=== PATIENT | female | born 1960 | race Caucasian/White ===

== ENCOUNTER 2018-09-15 18:52 | Emergency (ER) | payer OTHER, MEDICARE ==
[~2018-09-15] VITALS: Ht 165.1 cm; Wt 95.2 kg
[~2018-09-15 18:52] MED LIST: ACET325UDC PO; ATOR10; BUME1; Bactrim 400-801 EACH PO; CALCA500CH PO; CENTRUM SILVER1 EAC2 PO; CIPR500 PO; CYAN1000 PO; CYAN1000I; ESCI10 PO; FENT25TP TOP; FENT75TP TOP; FURO40 PO; GABA250SO PO; HYDMOR4 PO; INSLI100I; INSULANI; LEVSOD100; LEVSOD200; LIDO5TP TOP; MULTCH; OMEP20ER; ONDA4ODT MM; OXYACE5T PO; Omeprazole20 M1; PHENA100 PO; PHENY100ER; PIOG15; POTA8; PROM25 PO; RANI150; ROSI4; RXHYDMOR2 PO; RXOXYACE PO; RXPHEN200 PO; SIME80CH PO; Senna Laxative8.6 MG PO; VALS80; VALS80 PO; VALSARTAN/HCTZ; WARF10; ZINC220 PO
[2018-09-15] MEDS ORDERED: LOSA25 (19:22)
[2018-09-15] MEDS ORDERED: LEVSOD50 PO (19:24)
[2018-09-15] MEDS ORDERED: METH10 PO (19:25)
[2018-09-15] MEDS ORDERED: GLIM2 PO (19:25)
[2018-09-15] MEDS ORDERED: IBUP400 PO (20:34)
== END 2018-09-15 20:43 | disposition home or self-care (01) ==
LOC: ER 18:52
DX: R10.11 Right upper quadrant pain (principal); M25.512 Pain in left shoulder; Z91.013 Allergy to seafood; Z88.0 Allergy status to penicillin; Z88.1 Allergy status to other antibiotic agents; Z91.048 Other nonmedicinal substance allergy status; Z79.899 Other long term (current) drug therapy; E11.9 Type 2 diabetes mellitus without complications; G40.909 Epilepsy, unspecified, not intractable, without status epilepticus; Z87.891 Personal history of nicotine dependence; V43.52XA Car driver injured in collision with other type car in traffic accident, initial encounter
CPT/HCPCS: 76705; 99284-25

== ENCOUNTER 2018-12-08 23:35 | Emergency (ER) | payer MEDICARE, OTHER ==
[~2018-12-08] VITALS: Ht 167.6 cm; Wt 97.5 kg
[~2018-12-08 23:35] MED LIST changes: +GLIM2 PO; +IBUP400 PO; +LEVSOD50 PO; +LOSA25; +METH10 PO
[2018-12-08] MEDS ORDERED: VALSARTAN-HCTZ1 EAC1 PO (23:50)
[2018-12-09] MEDS ORDERED: LORTAB 10 MG-3473 ML PO (00:41)
== END 2018-12-09 00:52 | disposition home or self-care (01) ==
LOC: ER 23:35
DX: S62.336A Displaced fracture of neck of fifth metacarpal bone, right hand, initial encounter for closed fracture (principal); S62.334A Displaced fracture of neck of fourth metacarpal bone, right hand, initial encounter for closed fracture; W01.198A Fall on same level from slipping, tripping and stumbling with subsequent striking against other object, initial encounter; E11.9 Type 2 diabetes mellitus without complications; G40.909 Epilepsy, unspecified, not intractable, without status epilepticus; Z87.891 Personal history of nicotine dependence; Z88.8 Allergy status to other drugs, medicaments and biological substances; Z91.013 Allergy to seafood; Z88.0 Allergy status to penicillin; Z88.1 Allergy status to other antibiotic agents; Z79.899 Other long term (current) drug therapy
CPT/HCPCS: 29125; 73130; 96372; 99283-25; J1885

== ENCOUNTER 2020-01-27 12:31 | Inpatient (IN) | payer MEDICARE, OTHER ==
[~2020-01-27] VITALS: Ht 165.1 cm; Wt 95.2 kg
[~2020-01-27 12:31] MED LIST changes: -AMLO5 PO; -ATORVASTATIN CA80 M1 PO; -Amaryl1 MG PO; -Aspir 8181 MG PO; -CLOP75 PO; -ESCITALOPRAM OXA5 MG PO; -GABAPENTIN250 MG/5 M PO; -HYDROMORPHO1 MG/1 ML PO; -LEVEMIR FL100 UNIT/1 SC; -LEVSOD100 PO; -METOPROLOL SUCC25 MG PO; -NITR.4SL SL; -OLMESARTAN-HCT1 EAC1 PO; -ROSUVASTATIN CAL5 MG PO; -XARELTO20 MG PO
[2020-01-27] MEDS ORDERED: Amaryl1 MG PO (13:15)
[2020-01-27] MEDS ORDERED: OLMESARTAN-HCT1 EAC1 PO (13:16)
[2020-01-27] MEDS ORDERED: HYDROMORPHO1 MG/1 ML PO (13:19)
[2020-01-27] MEDS ORDERED: ESCITALOPRAM OXA5 MG PO (13:20)
[2020-01-27] MEDS ORDERED: GABAPENTIN250 MG/5 M PO ×2 (13:21→13:25)
[2020-01-27] MEDS ORDERED: LEVEMIR FL100 UNIT/1 SC (13:25)
[2020-01-27] MEDS ORDERED: ROSUVASTATIN CAL5 MG PO (13:27)
[2020-01-27] MEDS ORDERED: METOPROLOL SUCC25 MG PO (13:38)
[2020-01-27] MEDS ORDERED: AMLO5 PO (13:38)
[2020-01-27 13:40] LABS: Free Thyroxine 2.35 ng/dL (0.70-1.60); Magnesium, Blood 1.9 mg/dL (1.6-2.4); Troponin I 0.12 ng/mL (0.000-0.040)
[2020-01-27 13:43] LABS: Thyroid Stimulating Hormone 0.318 uIU/mL (0.360-4.800)
[2020-01-27] MEDS ORDERED: LEVSOD100 PO (13:46)
--- NOTE | 2020-01-27 17:03 | NUR ---
Echocardiogram completed.
--- NOTE | 2020-01-27 18:50 | NUR ---
RATE/RHYTHM THIS RN CALLED TO ASK FOR RATE AND RHYTHM BEFORE GIVING DIGOXIN AND PCU SHOWCASE TRIMMER REPORTS RATE IS 90 AND RHYTHM IS SINUS RHYTHM. THIS RN TALKED WITH DR. LUCERO AND HE ORDERED TO HOLD THE DIGOXIN AT THIS TIME. WILL CONTINUE TO MONITOR RATE AND RHYTHM. CALL LIGHT IN REACH.
--- NOTE | 2020-01-27 19:26 | NUR ---
AUTOMATIC DIE CUTTING MACHINE OPERATOR HERE TO SEE PT AT THIS TIME
--- NOTE | 2020-01-27 19:27 | NUR ---
SHIFT SUMMARY PT ADMITTED THIS EVENING FROM ED INTO ROOM 326. PT ALERT AND ORIENTED X4. PT ORIENTED TO ROOM AND CALL LIGHT. NO COMPLAINTS OF CHEST PAIN OR SHORTNESS OF BREATH. PT DOES REPORT DIZZINESS WITH STANDING AND SITTING UP. PT RECEIVED A 500ML BOLUS ON THIS FLOOR AND HAS IVF INFUSING AT 100ML/HR. PT WAS IN AFIB AND HEART RATE RUNNING 120-160'S. DR. LUCERO WAS NOTIFIED OF PT SUSTAINING 160 FOR HEART RATE THIS EVENING AND HE ORDERED DIGOXIN IV. THIS RN WAS GOING TO ADMINISTER DIGOXIN AND CALLED SUPERVISOR COMMUNICATIONS AND SIGNALS BEFORE TO ASK FOR RATE AND RHYTHM AND PT CONVERTED TO NSR AT 90. DR. LUCERO WAS NOTIFIED BY THIS RN AND DIGOXIN WAS HELD. DR. MAY IN TO SEE PT THIS EVENING AND AWARE OF PT CONVERTED INTO NSR. PT HAS NO COMPLAINTS AT THIS TIME. CALL LIGHT IN REACH AND REPORT GIVEN TO NOC RN.
--- NOTE | 2020-01-28 04:33 | NUR ---
SHIFT SUMMARY PT IS A/O X4. NEEDS STANDBY ASSIST TO COMMODE. TOLERATING PO INTAKE AND VOIDING. PAIN MANAGED WITH PO PAIN MEDS PER ORDERS. TELE HAS BEEN IN PLACE PER ORDERS; PT HAS BEEN IN SINUS RHYTHM THROUGH THE SHIFT. ASSISTED WITH ADL'S PRN.
[2020-01-28 05:19] LABS: BASOPHILS ABSOLUTE AUTO 0.02 K/mm3 (0.00-0.23); BASOPHILS PERCENT AUTO 0 % (0-2); EOSINOPHILS ABSOLUTE AUTO 0.05 K/mm3 (0.00-0.68); EOSINOPHILS PERCENT AUTO 1 % (0-6); Hematocrit 38.8 % (33.0-51.0); IMMATURE GRAN ABSOLUTE AUTO 0.01 K/mm3 (0.00-0.10); IMMATURE GRAN PERCENT AUTO 0 % (0-1); LYMPHOCYTES ABSOLUTE AUTO 2.22 K/mm3 (0.84-5.20); LYMPHOCYTES PERCENT AUTO 39 % (21-46); MONOCYTES ABSOLUTE AUTO 0.35 K/mm3 (0.16-1.47); MONOCYTES PERCENT AUTO 6 % (4-13); Mean Corpuscular HGB 26.4 pg (26.0-34.0); Mean Corpuscular HGB Conc 30.9 g/dL (31.5-36.5); Mean Platelet Volume 11.4 fL (9.1-12.4); NEUTROPHILS ABSOLUTE AUTO 3.07 K/mm3 (1.96-9.15); NEUTROPHILS PERCENT AUTO 54 % (41-73); Platelet Count 181 K/mm3 (150-400); RDW Standard Deviation 43.1 fL (35.1-46.3); Red Blood Cell Count 4.54 M/mm3 (3.80-5.20); White Blood Cell Count 5.72 K/mm3 (4.00-11.30)
[2020-01-28 05:25] LABS: Mean Corpuscular Volume 86 fL (80-100)
[2020-01-28 05:52] LABS: Alanine Aminotransfer (ALT/SGP 42 U/L (12-78); Albumin, Blood 2.9 g/dL (3.4-5.0); Alk Phos 93 U/L (50-136); Anion Gap 5 mmol/L (6-16); Aspartate Aminotrans (AST/SGOT 151 U/L (12-37); Bilirubin, Total 0.6 mg/dL (0.1-1.0); Blood Urea Nitrogen 21 mg/dL (8-24); Bun/Creatinine Ratio 26.3 (12.0-20.0); CO2, Blood 28 mmol/L (21-32); Calcium, Blood 8.6 mg/dL (8.5-10.1); Chloride, Blood 109 mmol/L (98-108); Globulin, Blood 2.9 g/dL (2.2-4.0); Glomerular Filtration Rate >60 (60-); Glucose, Blood 185 mg/dL (70-99); Potassium, Blood 4.2 mmol/L (3.5-5.5); Sodium, Blood 142 mmol/L (136-145); Total Protein, Blood 5.8 g/dL (6.4-8.2)
--- NOTE | 2020-01-28 06:57 | NUR ---
TROPONIN/CARDIAC NOTE AT 0555 RN NOTIFIED OF CRITICAL TROPONIN. HOSPITALIST AND ENGRAVER COPPERPLATE NOTIFIED. DISCUSSED WTIH PHYSICAL SECURITY MANAGER. PT IS ASYMPTOMATIC - REPORTS NO C/P OR SOB.
[2020-01-28 07:34] LABS: International Normalized Ratio 1.02; Prothrombin Time Results 10.9 Sec (9.7-11.5)
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
--- NOTE | 2020-01-28 07:42 | NUR ---
REPORT GIVEN TO SERVICE AGENT. PT IS BEING TRANSFERRED.
--- NOTE | 2020-01-28 07:50 | NUR ---
RECEIEVED PT INTP PCU 6 VIA WHEELCHAIR. PT IS A&OX3-REPORTS 05/19 ABDOMINAL PAIN THAT IS "CHRONIC." PT DENIES CP OR SOB. VS WDL. HR 60'S. MURMUR AUSCULTATED. LUNGS CLEAR. NOTED 2+ EDEMA TO BILATERAL LOWER EXTREMITIES. PT TO REMAIN NPO EXCEPT MEDS FOR POSSIBLE TENSION WORKER LATER TODAY. CALL LIGHT PLACED WITHIN PT. REACH.
--- NOTE | 2020-01-28 07:52 | NUR ---
PATIENT TRANSFERRED TO ROOM PCU 6 AT 0745. REPORT GIVEN TO PCU NURSE BY ROVING INSPECTOR NURSE AGATHA BRANTLEY.
--- NOTE | 2020-01-28 08:30 | NUR ---
HEPARIN 5000 UNIT BOLUS GIVEN, THEN INITIATED HEPARIN DRIP @ 13 UNITS/KG/HR=18.7 ML/HR. PTT @ 1500.
--- NOTE | 2020-01-28 11:18 | NUR ---
PT STATES THAT SHE IS ANXIOUS REGARDING ANGIOGRAM. BP 146/116-DENIES CP OR SOB.
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
--- NOTE | 2020-01-28 13:00 | NUR ---
HEPARIN DRIP AND IVF STOPPED BY BUSINESS PROJECT MANAGER RNJESUS. PT TO BUSINESS PROJECT MANAGER VIA BED.
--- NOTE | 2020-01-28 14:55 | NUR ---
RETURNED FROM MACHINE PLASTER MIXER.S/P ANGIOGRAM WITH PCI TO RIGHT/DIAGONAL VIA RIGHT RADIAL ARTER. TR BAND INTACT TO RIGHT WRIST. ARM BOARD IN PLACE AND PT IS AWARE THAT SHE IS TO KEEP HER ARM STRAIGHT. NO NOTED HEMATOMA-NO ACUTE BLEEDING WITH TR CUFF INFLATED WITH 10CC OF AIR. PT IS SLEEPY, BUT OPENS HER EYES TO VOICE AND ANSWERS QUESTIONS APPROPRIATELY. SHE WA MEDICATED WITH ONLY BENADRYL FOR THE PROCEDURE. RADIAL AND ULNAR PULSES STRONG-SPO TO RIGHT INDEX FINGER AND GOOD PLETH.
--- NOTE | 2020-01-28 15:00 | NUR ---
NS@200CC/HR X 500 CC INITIATED.
--- NOTE | 2020-01-28 16:46 | NUR ---
CBG 302-COVERED WITH 6 UNITS REGULAR INSULIN PER SLIDING SCALE-SEE EMAR.
--- NOTE | 2020-01-28 18:09 | NUR ---
PT SAT UP IN CHAIR TO EAT DINNER. TOLERATED WELL. HOWEVER, RIGHT FOREARM IV SITE LEAKING LOOP WAS DISLODGED FROM IV CATHETER. IV REMAINED PATENT. NEW DRESSING APPLIED TO RIGHT ARM. PT GOWN CHANGED AND ASSISTED BACK TO BED. RIGHT RADIAL SITE REMAINS CLEAR. BLEEDING FROM RIGHT RADIAL SITE, TR BAND REMAINS IN PLACE. PT REPORTS FEELING "TIRED."
--- NOTE | 2020-01-28 19:23 | NUR ---
PT APPEARS TO BE SLEEPING. RIGHT RADIAL TR BAND REMAINS IN PLACE. NO BLEEDING OR HEMATOMA. SPO2 CONTINUES WITH GOOD PLETH. REPORT GIVEN TO AGATHA SEAY.
--- NOTE | 2020-01-29 00:50 | NUR ---
EVENT NOTE REQUESTED BY PRIMARY RN DAWOOD TO ASSIST IN ASSESSMENT OF TR BAND AND REMOVAL AT THIS TIME. BAND IS FULLY DEFLATED, NO SIGNS OF BLEEDING OR HEMATOMA. NO SWELLING, NO REDNESS, NON-TENDER. PT DENIES PAIN OR TINGLING. TR BAND REMOVED AND SCANT AMOUNT OF DRIED BLOOD CLEANED FROM INSERTION SITE. TEGADERM APPLIED AND ARM BOARD PLACED TO PROTECT SITE. PT DENIES COMPLAINTS OR OTHER NEEDS AT THIS TIME, UPDATE GIVEN TO DAWOOD SNIDER FOR FURTHER MONITORING.
--- NOTE | 2020-01-29 08:10 | NUR ---
SHIFT SUMMARY PT A&O; TR BAND DEFLATED APPROPRIATELY; REMOVED BY MANAGEMENT DEVELOPMENT SPECIALIST; NO SIGNS OF SWELLING, HEMATOMA OR BLEEDING; PROVIDER CALLED TO CLARIFY, NO ORDERS FOR AM LAB DRAWS; C/O CHRONIC ABDOMEN PAIN; REPOSITIONED AND MEDICATED PER EMAR; ASSISTED W/ AMBULATION FOR BATHROOM PRIVIELEGES; PT UP IN CHAIR THIS AM; CALL LIGHT IN REACH; DENIES NEEDS AT THIS TIME; REPORT GIVEN TO DAY SHIFT RN.
--- NOTE | 2020-01-29 08:20 | NUR ---
ASSUMPTION OF CARE PT SITTING UP IN CHAIR. A&Ox4; CALM AND COOPERATIVE WITH CARE. PT REPORTING CHRONIC ABD PAIN; MEDICATED x1 WITH PO DILAUDID THIS AM. PT DENIES SOB, CHEST PAIN/PRESSURE, DIZZINESS/LIGHTHEADEDNESS AND NAUSEA. PT REPROTS NUMBNESS TO BLE, REPORTS BASELINE FOR HER. PT RIGHT RADIAL SITE C/D/I; NO BLEEDING; BRUISING OR HEMATOMA NOTED; PT DENIES NUMBNESS/TINGLING TO RUE; CAP REFILL WNL. SPO2 >94% ON RA. PT EDUCATED ON PLAVIX, XARELTO AND LIPITOR. WILL CONTINUE TO MONITOR.
--- NOTE | 2020-01-29 12:54 | NUR ---
CLARIFIED D/C OF INSULING ORDERS WITH DR LONDON AND NOTIFIED OF CBG OF 202; NO NEW ORDERS AT THIS TIME. TELEPHONE REPORT GIVEN TO RN ASSUMING CARE OF PATIENT. PLANS TO MOVE TO ROOM 306.
--- NOTE | 2020-01-29 14:37 | NUR ---
ARRIVAL TO UNIT AND ASSESSMENT: PATIENT ARRIVED TO UNIT. REPORT RECEIVED FROM LEXII VALIENTE. PATIENT DENIES CHEST PAIN, SOB OR NUMBNESS/TINGLING IN EXTREMITIES. HEART RATE IS REGULAR AND PATIENT HAS A MURMUR THAT SHE REPORTS IS A BASELINE FINDING. PATIENT REPORTS HER RIGHT HAND IS NO LONGER FEELING COLD. EXTREMITIES ARE WARM TO THE TOUCH. PATIENT HAS SENSATION, MOTION, AND NORMAL PULSES IN RIGHT HAND/WRIST. PATIENT REPORTS A 7/10 ABDOMINAL PAIN THAT SHE HAS CHRONICALLY. PROVIDED WITH A K-PAD UNTIL NEXT PRN IS DUE. PATIENT REPORTS THIS IS ADEQUATE. PATIENT HAS MULTIPLE QUESTIONS ABOUT RESTRICTIONS AND FOLLOW-UP CARE. DISCUSSED PLAN TO PROVIDE EDUCATION THROUGHOUT THE AFTERNOON AND WRITTEN MATERIAL.
--- NOTE | 2020-01-29 18:50 | NUR ---
END OF SHIFT SUMMARY: PATIENT DENIED ANY CHEST PAIN, NUMBNESS/TINGLING IN EXTREMITIES, SOB, DIZZINESS OR LIGHTHEADEDNESS. PATIENT UP TO THE BATHROOM WITH OUT DIFFICULTY. PATIENT CONTINUES TO FOLLOW PRECAUTIONS TO RIGHT WRIST AND FOREARM. RIGHT HAND CONTINUES TO HAVE C/M/S. RADIAL ACCESS SITE CONTINUES TO BE FREE OF HEMATOMA OR BLEEDING. DRESSING IS C/D/I. EDUCATION PROVIDED TO PATIENT IN REGARDS TO ANGIO PROCEDURE, STENT, HOME CARE AND NON-STEMI. PATIENT REPORTS THAT SHE NEEDS A WRITTEN PERMISSION NOTE FROM THE BENCH BORING MACHINE OPERATOR THAT ALLOWS HER TO UNDERGO WEEKLY TRIGGER POINT INJECTIONS AND IV LIDOCAINE IN [place]. PER THE PATIENT, DR. GERONIMO PROVIDED VERBAL PERMISSION, BUT NOT WRITTEN PERMISSION. ATTEMPTED TO CALL THE ANSWERING SERVICE WITHOUT SUCCESS. WILL PASS ON TO POST DOCTORAL RESEARCHER. PATIENT NOTIFIED.
--- NOTE | 2020-01-30 03:58 | NUR ---
APPLICATIONS ARCHITECT REPORT PT A/OX4. DENIES CHEST PAIN, SOB, NAUSEA. MEDICATED FOR ABD PAIN PER EMAR MULTIPLE TIMES TONIGHT. THIS IS A CHRONIC PAIN THAT PT HAS BEEN HAVING AFTER GASTRIC BYPASS SURGERY FROM AWHILE AGO. HEATING PAD ALSO IN PLACE. VSS. NO ACUTE CHANGES. CALL LIGHT WITHIN REACH.
[2020-01-30] MEDS ORDERED: Aspir 8181 MG PO (13:28)
[2020-01-30] MEDS ORDERED: ATORVASTATIN CA80 M1 PO (13:29)
[2020-01-30] MEDS ORDERED: NITR.4SL SL (13:30)
[2020-01-30] MEDS ORDERED: CLOP75 PO (13:30)
[2020-01-30] MEDS ORDERED: XARELTO20 MG PO (13:31)
--- NOTE | 2020-01-30 15:15 | NUR ---
DISCHARGE SUMMARY: LATE ENTRY: PATIENT PAIN CONTROLLED THROUGHOUT SHIFT WITH PRN PAIN MEDICATIONS AND K-PAD. PATIENT DENIED CHEST PAIN OR DISCOMFORT THROUGHOUT SHIFT. RIGHT ACCESS POINT CONTINUES TO HAVE MINIMAL DRIED BLOOD AT SIGHT WITH NO PAIN OR CHANGES TO C/M/S OF THE HAND. IT APPEARS THAT A BRUISE IS FORMING AT THE SITE. PATIENT IS AWARE OF SIGNS AND SYMPTOMS OF INFECTION AND RADIAL SITE CARE AT HOME. DISCHARGE RX FAXED TO [facility] AT [facility] PER PATIENT REQUEST. DISCHARGE EDUCATION AND INSTRUCTIONS PROVIDED TO THE PATIENT. ALL QUESTIONS AND CONCERNS ADDRESSED. PATIENT DISCHARGED IN WHEELCHAIR WITH OCCUPATIONAL PSYCHOLOGIST. PATIENT STABLE AT TIME OF DISCHARGE.
== END 2020-01-30 14:39 | disposition home or self-care (01) | DRG 247 ==
LOC: ER 12:31 → PCU 12:32 → MEDS 12:32 → PCU 12:33 → ER 14:11 → PCU 14:11 → MEDS 14:11 → PCU 01-28 08:00 → MEDS 01-29 13:34
PROVIDERS: Emergency Medicine; Pharmacist; ADMIT Family Medicine
PROC: 027034Z Dilation of Coronary Artery, One Artery with Drug-eluting Intraluminal Device, Percutaneous Approach (ICD-10-PCS; principal; 2020-01-28)
PROC: B2111ZZ Fluoroscopy of Multiple Coronary Arteries using Low Osmolar Contrast (ICD-10-PCS; 2020-01-28)
PROC: 4A023N7 Measurement of Cardiac Sampling and Pressure, Left Heart, Percutaneous Approach (ICD-10-PCS; 2020-01-28)
DX: I21.4 Non-ST elevation (NSTEMI) myocardial infarction (principal); I47.2 Ventricular tachycardia; I25.10 Atherosclerotic heart disease of native coronary artery without angina pectoris; I48.91 Unspecified atrial fibrillation; I08.0 Rheumatic disorders of both mitral and aortic valves; E11.65 Type 2 diabetes mellitus with hyperglycemia; E66.01 Morbid (severe) obesity due to excess calories; G89.29 Other chronic pain; G40.909 Epilepsy, unspecified, not intractable, without status epilepticus; J45.909 Unspecified asthma, uncomplicated; I10 Essential (primary) hypertension; E78.5 Hyperlipidemia, unspecified; E87.6 Hypokalemia; E05.80 Other thyrotoxicosis without thyrotoxic crisis or storm; Z68.34 Body mass index [BMI] 34.0-34.9, adult; Z87.891 Personal history of nicotine dependence; Z98.84 Bariatric surgery status; Z88.8 Allergy status to other drugs, medicaments and biological substances; Z88.1 Allergy status to other antibiotic agents; Z88.0 Allergy status to penicillin; Z79.4 Long term (current) use of insulin; Z79.891 Long term (current) use of opiate analgesic; Z79.899 Other long term (current) drug therapy
CPT/HCPCS: 36415; 71045; 76937; 80053; 82947; 83735; 84439; 84443; 84484; 85025; 85347; 85610; 85730; 93005; 93010; 93306; 93454; 96361; 96374; 99285-25; A9270-GY; C1725; C1769; C1874; C1887; C1894; C9600; J1200; J1644; J1720; J1815; J2250; J3010; J7030; J7040; Q9967

== ENCOUNTER → 2020-01-27 | Outpatient (CLI) | payer MEDICARE, OTHER ==
[~2020-01-27] MED LIST changes: +AMLO5 PO; +ATORVASTATIN CA80 M1 PO; +Amaryl1 MG PO; +Aspir 8181 MG PO; -CENTRUM SILVER1 EAC2 PO; +CLOP75 PO; +ESCITALOPRAM OXA5 MG PO; +GABAPENTIN250 MG/5 M PO; -GLIM2 PO; +HYDROMORPHO1 MG/1 ML PO; +LEVEMIR FL100 UNIT/1 SC; +LEVSOD100 PO; -LEVSOD50 PO; +LORTAB 10 MG-3473 ML PO; -LOSA25; +METOPROLOL SUCC25 MG PO; +NITR.4SL SL; +OLMESARTAN-HCT1 EAC1 PO; +ROSUVASTATIN CAL5 MG PO; +XARELTO20 MG PO
[2020-01-27 12:17] LABS: BASOPHILS ABSOLUTE AUTO 0.04 K/mm3 (0.00-0.23); BASOPHILS PERCENT AUTO 0 % (0-2); EOSINOPHILS ABSOLUTE AUTO 0.07 K/mm3 (0.00-0.68); EOSINOPHILS PERCENT AUTO 1 % (0-6); Hematocrit 47.8 % (33.0-51.0); Hemoglobin 15.3 g/dL (11.5-16.0); IMMATURE GRAN ABSOLUTE AUTO 0.03 K/mm3 (0.00-0.10); IMMATURE GRAN PERCENT AUTO 0 % (0-1); LYMPHOCYTES PERCENT AUTO 27 % (21-46); MONOCYTES ABSOLUTE AUTO 0.49 K/mm3 (0.16-1.47); MONOCYTES PERCENT AUTO 5 % (4-13); Mean Corpuscular HGB 26.6 pg (26.0-34.0); Mean Corpuscular Volume 83 fL (80-100); Mean Platelet Volume 12.4 fL (9.1-12.4); NEUTROPHILS ABSOLUTE AUTO 6.43 K/mm3 (1.96-9.15); NEUTROPHILS PERCENT AUTO 67 % (41-73); Platelet Count 281 K/mm3 (150-400); RDW Standard Deviation 41.8 fL (35.1-46.3); Red Blood Cell Count 5.76 M/mm3 (3.80-5.20); White Blood Cell Count 9.66 K/mm3 (4.00-11.30)
[2020-01-27 12:29] LABS: Bun/Creatinine Ratio 22.9 (12.0-20.0); Calcium, Blood 9.1 mg/dL (8.5-10.1); Creatinine, Blood 1.09 mg/dL (0.40-1.00); Potassium, Blood 3.4 mmol/L (3.5-5.5); Troponin I 0.09 ng/mL (0.000-0.040)
== END | disposition home or self-care (01) ==
LOC: LAB EV 12:10 → LAB SHORT 12:10
PROVIDERS: Physician Assistant Surgical
DX: I48.91 Unspecified atrial fibrillation (principal)
CPT/HCPCS: 80048; 84484; 85025

== ENCOUNTER 2020-02-24 12:54 | Emergency (ER) | payer MEDICARE, OTHER ==
[~2020-02-24] VITALS: Ht 167.6 cm; Wt 95.2 kg
[~2020-02-24 12:54] MED LIST changes: +AMLO5 PO; +ATORVASTATIN CA80 M1 PO; +Amaryl1 MG PO; +Aspir 8181 MG PO; +CLOP75 PO; +ESCITALOPRAM OXA5 MG PO; +GABAPENTIN250 MG/5 M PO; +HYDROMORPHO1 MG/1 ML PO; +LEVEMIR FL100 UNIT/1 SC; +LEVSOD100 PO; +METOPROLOL SUCC25 MG PO; +NITR.4SL SL; +OLMESARTAN-HCT1 EAC1 PO; +ROSUVASTATIN CAL5 MG PO; +XARELTO20 MG PO
[2020-02-24 13:48] LABS: BASOPHILS ABSOLUTE AUTO 0.01 K/mm3 (0.00-0.23); BASOPHILS PERCENT AUTO 0 % (0-2); EOSINOPHILS ABSOLUTE AUTO 0.02 K/mm3 (0.00-0.68); EOSINOPHILS PERCENT AUTO 0 % (0-6); Hematocrit 41.3 % (33.0-51.0); Hemoglobin 12.6 g/dL (11.5-16.0); IMMATURE GRAN ABSOLUTE AUTO 0.01 K/mm3 (0.00-0.10); IMMATURE GRAN PERCENT AUTO 0 % (0-1); LYMPHOCYTES ABSOLUTE AUTO 1.48 K/mm3 (0.84-5.20); LYMPHOCYTES PERCENT AUTO 27 % (21-46); MONOCYTES PERCENT AUTO 5 % (4-13); Mean Corpuscular HGB 26.9 pg (26.0-34.0); Mean Corpuscular HGB Conc 30.5 g/dL (31.5-36.5); Mean Corpuscular Volume 88 fL (80-100); Mean Platelet Volume 10.4 fL (9.1-12.4); NEUTROPHILS ABSOLUTE AUTO 3.73 K/mm3 (1.96-9.15); NEUTROPHILS PERCENT AUTO 67 % (41-73); Platelet Count 277 K/mm3 (150-400); RDW Coefficient Variation 14.3 % (11.7-14.2); RDW Standard Deviation 46.1 fL (35.1-46.3); Red Blood Cell Count 4.68 M/mm3 (3.80-5.20); White Blood Cell Count 5.55 K/mm3 (4.00-11.30)
[2020-02-24 14:05] LABS: Alanine Aminotransfer (ALT/SGP 32 U/L (12-78); Albumin, Blood 3.2 g/dL (3.4-5.0); Albumin/Globulin Ratio 0.9 (0.8-1.8); Alk Phos 84 U/L (50-136); Anion Gap 6 mmol/L (6-16); Aspartate Aminotrans (AST/SGOT 33 U/L (12-37); Bilirubin, Total 0.6 mg/dL (0.1-1.0); Blood Urea Nitrogen 19 mg/dL (8-24); Bun/Creatinine Ratio 29.2 (12.0-20.0); CO2, Blood 26 mmol/L (21-32); Calcium, Blood 8.7 mg/dL (8.5-10.1); Chloride, Blood 108 mmol/L (98-108); Creatinine, Blood 0.65 mg/dL (0.40-1.00); Globulin, Blood 3.6 g/dL (2.2-4.0); Glomerular Filtration Rate >60 (60-); Glucose, Blood 211 mg/dL (70-99); Potassium, Blood 3.8 mmol/L (3.5-5.5); Sodium, Blood 140 mmol/L (136-145); Total Protein, Blood 6.8 g/dL (6.4-8.2)
== END 2020-02-24 15:54 | disposition home or self-care (01) ==
LOC: ER 12:54
PROVIDERS: Emergency Medicine
DX: R42 Dizziness and giddiness (principal); I10 Essential (primary) hypertension; E11.9 Type 2 diabetes mellitus without complications; G40.909 Epilepsy, unspecified, not intractable, without status epilepticus; E03.9 Hypothyroidism, unspecified; I25.10 Atherosclerotic heart disease of native coronary artery without angina pectoris; Z91.09 Other allergy status, other than to drugs and biological substances; Z88.0 Allergy status to penicillin; Z88.8 Allergy status to other drugs, medicaments and biological substances; Z88.1 Allergy status to other antibiotic agents; Z91.013 Allergy to seafood; Z79.4 Long term (current) use of insulin; Z79.899 Other long term (current) drug therapy; Z79.02 Long term (current) use of antithrombotics/antiplatelets
CPT/HCPCS: 36415; 80053; 85025; 93005; 93010; 96360; 99284-25; J7030

== ENCOUNTER 2021-02-21 15:44 | Inpatient (IN) | payer MEDICARE, OTHER ==
[~2021-02-21] VITALS: Ht 167.6 cm; Wt 95.2 kg
[2021-02-21 16:46] LABS: BASOPHILS ABSOLUTE AUTO 0.02 K/mm3 (0.00-0.23); BASOPHILS PERCENT AUTO 0 % (0-2); EOSINOPHILS ABSOLUTE AUTO 0.07 K/mm3 (0.00-0.68); EOSINOPHILS PERCENT AUTO 1 % (0-6); Hemoglobin 9.1 g/dL (11.5-16.0); IMMATURE GRAN ABSOLUTE AUTO 0.02 K/mm3 (0.00-0.10); IMMATURE GRAN PERCENT AUTO 0 % (0-1); LYMPHOCYTES ABSOLUTE AUTO 1.41 K/mm3 (0.84-5.20); LYMPHOCYTES PERCENT AUTO 25 % (21-46); MONOCYTES ABSOLUTE AUTO 0.35 K/mm3 (0.16-1.47); MONOCYTES PERCENT AUTO 6 % (4-13); Mean Corpuscular HGB Conc 28.4 g/dL (31.5-36.5); Mean Corpuscular Volume 78 fL (80-100); Mean Platelet Volume 10.4 fL (9.1-12.4); NEUTROPHILS ABSOLUTE AUTO 3.78 K/mm3 (1.96-9.15); NEUTROPHILS PERCENT AUTO 67 % (41-73); Platelet Count 259 K/mm3 (150-400); RDW Coefficient Variation 18.7 % (11.7-14.2); RDW Standard Deviation 52.4 fL (35.1-46.3); Red Blood Cell Count 4.13 M/mm3 (3.80-5.20); White Blood Cell Count 5.65 K/mm3 (4.00-11.30)
[2021-02-21 17:16] LABS: Alanine Aminotransfer (ALT/SGP 33 U/L (12-78); Albumin, Blood 2.9 g/dL (3.4-5.0); Albumin/Globulin Ratio 0.8 (0.8-1.8); Alk Phos 180 U/L (50-136); Anion Gap 4 mmol/L (6-16); Aspartate Aminotrans (AST/SGOT 47 U/L (12-37); Bilirubin, Total 0.4 mg/dL (0.1-1.0); Blood Urea Nitrogen 13 mg/dL (8-24); CO2, Blood 29 mmol/L (21-32); Calcium, Blood 7.9 mg/dL (8.5-10.1); Chloride, Blood 111 mmol/L (98-108); Creatinine, Blood 0.72 mg/dL (0.40-1.00); Globulin, Blood 3.6 g/dL (2.2-4.0); Glomerular Filtration Rate >60 (60-); Glucose, Blood 67 mg/dL (70-99); Potassium, Blood 3.7 mmol/L (3.5-5.5); Sodium, Blood 144 mmol/L (136-145); Total Protein, Blood 6.5 g/dL (6.4-8.2)
[2021-02-21] MEDS ORDERED: ESCI10 PO (19:31)
[2021-02-21] MEDS ORDERED: LEVEMIR FL100 UNIT/2 SC (19:38)
[2021-02-21] MEDS ORDERED: LEVSOD100 PO (19:39)
[2021-02-21] MEDS ORDERED: RANO500T PO (19:49)
[2021-02-21] MEDS ORDERED: TRULICITY1.5 MG/0.1 SC (19:51)
[2021-02-21] MEDS ORDERED: PREG100 PO (19:53)
[2021-02-21] MEDS ORDERED: SYNTHROID100 MC6 PO (20:42)
[2021-02-21] MEDS ORDERED: DILAUDID1 MG/1 M1 PO (20:43)
[2021-02-21] MEDS ORDERED: Bisoprolol Fumar5 MG PO (20:43)
[2021-02-21] MEDS ORDERED: PREGABALIN PO (20:44)
[2021-02-21] MEDS ORDERED: MOBIC15 MG PO (20:45)
[2021-02-21] MEDS ORDERED: RANOLAZINE ER500 M2 PO (20:46)
[2021-02-21] MEDS ORDERED: LIPITOR80 MG PO (20:47)
[2021-02-21] MEDS ORDERED: PLAVIX75 MG PO (20:47)
[2021-02-21] MEDS ORDERED: ESCI20 PO (20:47)
[2021-02-21 21:10] LABS: Hematocrit 29.7 % (33.0-51.0); Hemoglobin 8.4 g/dL (11.5-16.0)
[2021-02-21 21:41] LABS: International Normalized Ratio 1.27; Prothrombin Time Results 13.5 Sec (9.7-11.5)
--- NOTE | 2021-02-21 22:37 | NUR ---
60 YR OLD FEMALE ADMITTED TO FLOOR FROM THE ED WITH DX OF GI BLEED. ALERT ANDORIENTED. ORIENTED TO USE OF CALL LIGHT. CALL LIGHT IN REACH.
[2021-02-22 01:08] LABS: BASOPHILS ABSOLUTE AUTO 0.02 K/mm3 (0.00-0.23); BASOPHILS PERCENT AUTO 0 % (0-2); EOSINOPHILS ABSOLUTE AUTO 0.07 K/mm3 (0.00-0.68); EOSINOPHILS PERCENT AUTO 1 % (0-6); Hemoglobin 8.6 g/dL (11.5-16.0); IMMATURE GRAN ABSOLUTE AUTO 0.01 K/mm3 (0.00-0.10); IMMATURE GRAN PERCENT AUTO 0 % (0-1); LYMPHOCYTES ABSOLUTE AUTO 1.33 K/mm3 (0.84-5.20); LYMPHOCYTES PERCENT AUTO 26 % (21-46); MONOCYTES ABSOLUTE AUTO 0.34 K/mm3 (0.16-1.47); MONOCYTES PERCENT AUTO 7 % (4-13); Mean Corpuscular HGB 21.7 pg (26.0-34.0); Mean Corpuscular HGB Conc 27.7 g/dL (31.5-36.5); Mean Corpuscular Volume 78 fL (80-100); Mean Platelet Volume 10.7 fL (9.1-12.4); NEUTROPHILS ABSOLUTE AUTO 3.43 K/mm3 (1.96-9.15); NEUTROPHILS PERCENT AUTO 66 % (41-73); Platelet Count 238 K/mm3 (150-400); RDW Coefficient Variation 18.6 % (11.7-14.2); RDW Standard Deviation 52.6 fL (35.1-46.3); Red Blood Cell Count 3.96 M/mm3 (3.80-5.20)
--- NOTE | 2021-02-22 01:11 | NUR ---
CONSULT FOR DR DAVIES (GI) CALLED IN, SHIN MCKEON MD WOULD BE NOTIFIED AT 0800 AM
[2021-02-22 01:39] LABS: Anion Gap 2 mmol/L (6-16); Blood Urea Nitrogen 12 mg/dL (8-24); Bun/Creatinine Ratio 17.1 (12.0-20.0); CO2, Blood 29 mmol/L (21-32); Calcium, Blood 7.8 mg/dL (8.5-10.1); Chloride, Blood 111 mmol/L (98-108); Ferritin, Serum 5 ng/mL (8-252); Glomerular Filtration Rate >60 (60-); Glucose, Blood 76 mg/dL (70-99); Iron Serum 23 ug/dL (50-170); Percent Saturation 5.2 % (15.0-50.0); Potassium, Blood 3.7 mmol/L (3.5-5.5); Sodium, Blood 142 mmol/L (136-145); Total Iron Binding Capacity 445 ug/dL (250-450)
--- NOTE | 2021-02-22 04:06 | NUR ---
SHIFT SUMMARY ADMITTED WITH DX GI BLEED. PROTONIX DRIP CONTINUES AT 10 ML/HR, AND NS AT 75 ML/HR FOR HYDRATION. RECEIVING DILAUDID 1 MG IV ABOUT EVERY 2 HRS FOR CHRONIC ABD PAIN. UP TO THE BATHROOM WITH ASSIST SHE HAS AN UNSTEADY GAIT. INTERMITTENT SLEEPING NOTICED. CALL LIGHT IN REACH
[2021-02-22 08:18] LABS: Hematocrit 30.5 % (33.0-51.0); Hemoglobin 8.5 g/dL (11.5-16.0)
--- NOTE | 2021-02-22 11:42 | NUR ---
ADMIT:02/21/21 DISCHARGE: DX: gastro bleed CC: cpeabody JESS CALL: RESIDENCE: home CAREGIVER: magdy TREVIÑO (PARENT) DX:aortic valve steno sis, DM 2 , afib, depression, hs of myocardial infarction, htn, DME: dm supplies CCM: no record HOME HEALTH: no record SUMMARY: admit 02/21/21 GIB (gastrointestinal bleeding) A/P: The patient did have a tooth pulled February 01 and had several days of constant bleeding but that has stopped now I doubt the patient's stool would still be heme positive if it were from that only. Patient does have a history of gastric bypass and multiple abdominal surgeries, she is also on Xarelto and Plavix and admits to taking Naproxen and Meloxicam daily.
[2021-02-22 12:30] LABS: Influenza A, PCR NEGATIVE (NEGATIVE); Influenza B, PCR NEGATIVE (NEGATIVE); Resp Syncytial Virus, PCR NEGATIVE (NEGATIVE); SARS-Cov-2 (COVID-19) PCR, MMC NEGATIVE (NEGATIVE)
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
--- NOTE | 2021-02-22 14:27 | NUR ---
02/22/21 1427 Jorden Ly PATIENT DETERMINED TO BE ASA APPROPRIATE FOR PROPOFOL SEDATION PRIOR TO START OF PROCEDURE BY DR. DAVIES Bite Block Placed 3-LEAD EKG REVIEWED WITH PHYSICIAN PRIOR TO START OF PROCEDURE. Patient to ENDO 1 History, Chart, Medications and Allergies reviewed before start of procedure. MONITOR INTACT WITH CONTINUOUS PULSE OXIMETRY AND INTERMITTENT BP. O2 VIA N/C INTACT THROUGHOUT SEDATION/PROCEDURE.
[2021-02-22 15:35] LABS: Hematocrit 31.4 % (33.0-51.0); Hemoglobin 8.9 g/dL (11.5-16.0)
[2021-02-22 23:27] LABS: Hematocrit 29.7 % (33.0-51.0); Hemoglobin 8.4 g/dL (11.5-16.0)
--- NOTE | 2021-02-23 04:14 | NUR ---
SHIFT SUMMARY NO ACUTE CHANGES TO REPORT THIS SHIFT. PT HAS BEEN AWAKE MOST OF THE NIGHT WATCHING TV ON HER PHONE OR PLAYING [employer]. PT MEDICATED FOR PAIN PRN PER ORDERS FOR CHRONIC ABD PAIN. PT AMBULATES WELL WITH 1 PA ASSIST. APPETITE IS GOOD, ASSESSMENT UNCHANGED. PT TO DISCHARGE TODAY. BED IN LOWEST POSITION, CALL LIGHT WITHIN REACH.
[2021-02-23 05:32] LABS: BASOPHILS ABSOLUTE AUTO 0.02 K/mm3 (0.00-0.23); BASOPHILS PERCENT AUTO 1 % (0-2); EOSINOPHILS ABSOLUTE AUTO 0.06 K/mm3 (0.00-0.68); EOSINOPHILS PERCENT AUTO 1 % (0-6); Hematocrit 30.6 % (33.0-51.0); Hemoglobin 8.5 g/dL (11.5-16.0); IMMATURE GRAN ABSOLUTE AUTO 0.02 K/mm3 (0.00-0.10); IMMATURE GRAN PERCENT AUTO 1 % (0-1); LYMPHOCYTES ABSOLUTE AUTO 1.14 K/mm3 (0.84-5.20); LYMPHOCYTES PERCENT AUTO 26 % (21-46); MONOCYTES ABSOLUTE AUTO 0.35 K/mm3 (0.16-1.47); MONOCYTES PERCENT AUTO 8 % (4-13); Mean Corpuscular HGB 21.7 pg (26.0-34.0); Mean Corpuscular HGB Conc 27.8 g/dL (31.5-36.5); Mean Corpuscular Volume 78 fL (80-100); Mean Platelet Volume 10.8 fL (9.1-12.4); NEUTROPHILS ABSOLUTE AUTO 2.82 K/mm3 (1.96-9.15); NEUTROPHILS PERCENT AUTO 64 % (41-73); Platelet Count 231 K/mm3 (150-400); RDW Coefficient Variation 18.8 % (11.7-14.2); RDW Standard Deviation 53.3 fL (35.1-46.3); Red Blood Cell Count 3.92 M/mm3 (3.80-5.20); White Blood Cell Count 4.41 K/mm3 (4.00-11.30)
[2021-02-23 06:03] LABS: Anion Gap 6 mmol/L (6-16); Blood Urea Nitrogen 13 mg/dL (8-24); Bun/Creatinine Ratio 16.1 (12.0-20.0); CO2, Blood 26 mmol/L (21-32); Calcium, Blood 7.8 mg/dL (8.5-10.1); Chloride, Blood 108 mmol/L (98-108); Creatinine, Blood 0.81 mg/dL (0.40-1.00); Glomerular Filtration Rate >60 (60-); Glucose, Blood 154 mg/dL (70-99); Potassium, Blood 4.1 mmol/L (3.5-5.5); Sodium, Blood 140 mmol/L (136-145)
--- NOTE | 2021-02-23 14:04 | NUR ---
SUMMARY/DISCHARGE PT DISCHARGED TO HOME, PT VERBALIZED UNDERSTANDING OF DISCHARGE ORDERS, INCLUDING FOLLOW UP AND MEDICATIONS, PT TAKEN OUT SAFELY VIA WHEELCHAIR
--- NOTE | 2021-02-23 15:28 | NUR ---
02/23/21 Discharge home, nephew here to pick her up, reviewed shanita letter and discharge summary, needs follow up in 1 week with shanita. Did not identify any care needs at this time. cp
== END 2021-02-23 13:07 | disposition home or self-care (01) | DRG 920 ==
LOC: ER 15:44 → MEDS 15:45 → ENPENDDIS 02-23 12:25 → MEDS 02-23 13:07
PROVIDERS: Family Medicine; Internal Medicine Gastroenterology; Nurse Practitioner Acute Care; Physician Assistant; ADMIT Family Medicine
PROC: 0DB68ZX Excision of Stomach, Via Natural or Artificial Opening Endoscopic, Diagnostic (ICD-10-PCS; principal; 2021-02-22 14:00)
DX: K91.840 Postprocedural hemorrhage of a digestive system organ or structure following a digestive system procedure (principal); K92.1 Melena; D62 Acute posthemorrhagic anemia; D68.32 Hemorrhagic disorder due to extrinsic circulating anticoagulants; E86.0 Dehydration; G40.909 Epilepsy, unspecified, not intractable, without status epilepticus; E11.9 Type 2 diabetes mellitus without complications; G89.29 Other chronic pain; I10 Essential (primary) hypertension; E03.9 Hypothyroidism, unspecified; K46.9 Unspecified abdominal hernia without obstruction or gangrene; E66.01 Morbid (severe) obesity due to excess calories; I48.0 Paroxysmal atrial fibrillation; K43.2 Incisional hernia without obstruction or gangrene; Z98.84 Bariatric surgery status; Z98.1 Arthrodesis status; Z88.8 Allergy status to other drugs, medicaments and biological substances; Z88.1 Allergy status to other antibiotic agents; Z91.041 Radiographic dye allergy status; Z88.0 Allergy status to penicillin; Z91.013 Allergy to seafood; Z90.49 Acquired absence of other specified parts of digestive tract; Z90.89 Acquired absence of other organs; Z90.710 Acquired absence of both cervix and uterus; Z98.890 Other specified postprocedural states; Z90.721 Acquired absence of ovaries, unilateral; Z79.01 Long term (current) use of anticoagulants; Z79.02 Long term (current) use of antithrombotics/antiplatelets; Z79.899 Other long term (current) drug therapy; Z79.4 Long term (current) use of insulin; I25.2 Old myocardial infarction; Z95.5 Presence of coronary angioplasty implant and graft; Z68.33 Body mass index [BMI] 33.0-33.9, adult; Y83.8 Other surgical procedures as the cause of abnormal reaction of the patient, or of later complication, without mention of misadventure at the time of the procedure; T45.515A Adverse effect of anticoagulants, initial encounter; T45.525A Adverse effect of antithrombotic drugs, initial encounter; T39.395A Adverse effect of other nonsteroidal anti-inflammatory drugs [NSAID], initial encounter
CPT/HCPCS: 0241U; 36415; 71045; 74177; 80048; 80053; 82728; 82947; 83540; 83550; 84443; 85014; 85018; 85025; 85610; 85730; 86850; 86900; 86901; 88305; 88342; 93005; 93010; 96365; 96375; 96376; 99285-25; A9270; A9270-GY; C9113; G0378; J1170; J1815; J2704; J7030; J7120; Q9967

== ENCOUNTER 2021-05-13 11:17 | Emergency (ER) | payer MEDICARE, OTHER ==
[~2021-05-13] VITALS: Ht 167.6 cm; Wt 97.5 kg
[~2021-05-13 11:17] MED LIST changes: +ATOR80 PO; +Acetaminophen325 M1 PO; +Bisoprolol Fumar5 MG PO; +CITA20 PO; +DILAUDID1 MG/1 M1 PO; +ESCI20 PO; +HYDROMORPHO1 MG/1 M9 PO; +INSULANPEN SC; +LEVEMIR FL100 UNIT/2 SC; +LIPITOR80 MG PO; +LYRICA20 MG/1 ML PO; +MOBIC15 MG PO; +Mobic15 MG PO; +NARCAN4 M1; +NYSTOP15 GM; +PLAVIX75 MG PO; +PREG100 PO; +PREGABALIN PO; +RANO500T PO; +RANOLAZINE ER500 M2 PO; +SYNTHROID100 MC6 PO; +TRULICITY1.5 MG/0.1 SC
[2021-05-13] MEDS ORDERED: ESCI20 PO (11:29)
[2021-05-13] MEDS ORDERED: HYDROMORPHO1 MG/119 PO (11:30)
[2021-05-13] MEDS ORDERED: LEVEMIR FL100 UNIT/2 SC (11:31)
[2021-05-13] MEDS ORDERED: PREG25 PO (11:33)
[2021-05-13] MEDS ORDERED: RANO500T PO (11:33)
[2021-05-13] MEDS ORDERED: TRULICITY3 MG/0.5 M (11:35)
[2021-05-13 12:10] LABS: Calcium, Ionized (POC) 1.14 mmol/L (1.10-1.46); Chloride (POC) 102 mmol/L (98-108); Creatinine (POC) 0.6 mg/dL (0.6-1.0); Glucose (ISTAT POC) 191 mg/dL (70-99); Hemoglobin (POC) 9.9 g/dL (12.0-16.0); Potassium (POC) 3.8 mmol/L (3.5-5.5); Sodium (POC) 141 mmol/L (135-148); Total CO2 (POC) 25 mmol/L (21-32)
== END 2021-05-13 13:48 | disposition home or self-care (01) ==
LOC: ER 11:17
PROVIDERS: Emergency Medicine
DX: R04.0 Epistaxis (principal); E11.9 Type 2 diabetes mellitus without complications; I10 Essential (primary) hypertension; I48.91 Unspecified atrial fibrillation; Z79.4 Long term (current) use of insulin; Z79.02 Long term (current) use of antithrombotics/antiplatelets; Z79.899 Other long term (current) drug therapy; Z88.1 Allergy status to other antibiotic agents; Z88.0 Allergy status to penicillin; Z91.013 Allergy to seafood
CPT/HCPCS: 30905; 80047; 85014; 99283-25

== ENCOUNTER 2021-06-14 13:02 | Day surgery (SDC) | payer MEDICARE, OTHER ==
[~2021-06-14] VITALS: Ht 165.1 cm; Wt 99.3 kg
[~2021-06-14 13:02] MED LIST changes: +HYDROMORPHO1 MG/119 PO; +PREG25 PO; +TRULICITY3 MG/0.5 M
--- NOTE | 2021-06-14 13:58 | NUR ---
06/14/21 1358 Aaron Fernando CALL LIGHT WITHIN REACH
--- NOTE | 2021-06-14 14:52 | NUR ---
06/14/21 1452 Shayy Ackerman BUPIVACAINE 0.5% MIXED W/ LIDOCAINE 1% 1:1 PER ORDER FOR PRE INJECTION AT OPSITE BY DR. SUGGS. 20 MLS BUPIVACAINE 0.5% & LIDOCAINE 1% INJECTED. ADDITIONAL 10 MLS OF BUPIVACAINE 0.5% INJECTED AT OPSITE DURING PROCEDURE BY DR. SUGGS FOR PAIN CONTROL.
== END 2021-06-14 16:45 | disposition home or self-care (01) ==
LOC: ORSCSDS 13:02
PROVIDERS: Podiatrist
PROC: 0SNP0ZZ Release Right Toe Phalangeal Joint, Open Approach (ICD-10-PCS; principal; 2021-06-14 14:15)
PROC: 0QSN04Z Reposition Right Metatarsal with Internal Fixation Device, Open Approach (ICD-10-PCS; principal; 2021-06-14 14:15)
DX: M20.41 Other hammer toe(s) (acquired), right foot (principal); M77.41 Metatarsalgia, right foot; I10 Essential (primary) hypertension; E78.00 Pure hypercholesterolemia, unspecified; I25.10 Atherosclerotic heart disease of native coronary artery without angina pectoris; J45.909 Unspecified asthma, uncomplicated; E11.42 Type 2 diabetes mellitus with diabetic polyneuropathy; Z79.01 Long term (current) use of anticoagulants; Z79.4 Long term (current) use of insulin; Z79.899 Other long term (current) drug therapy; E66.9 Obesity, unspecified; Z68.36 Body mass index [BMI] 36.0-36.9, adult
CPT/HCPCS: 82947; C1713; J2250; J2704; J3010; J3370; J7050; J7120

== ENCOUNTER → 2021-07-30 | Outpatient (CLI) | payer MEDICARE, OTHER ==
[2021-07-31 10:48] LABS: Stool Occult Bld Immuno 1 Negative (NEGATIVE)
== END | disposition home or self-care (01) ==
LOC: LAB 10:30 → LAB SHORT 10:30
PROVIDERS: Physician Assistant
DX: D50.9 Iron deficiency anemia, unspecified (principal)
CPT/HCPCS: 82274

== ENCOUNTER 2021-09-24 14:58 | Emergency (ER) | payer MEDICARE, OTHER ==
[~2021-09-24] VITALS: Ht 167.6 cm; Wt 101.6 kg
[2021-09-24 15:52] LABS: BASOPHILS ABSOLUTE AUTO 0.03 K/mm3 (0.00-0.23); BASOPHILS PERCENT AUTO 1 % (0-2); EOSINOPHILS ABSOLUTE AUTO 0.08 K/mm3 (0.00-0.68); EOSINOPHILS PERCENT AUTO 1 % (0-6); Hematocrit 49.4 % (33.0-51.0); Hemoglobin 15.4 g/dL (11.5-16.0); IMMATURE GRAN ABSOLUTE AUTO 0.01 K/mm3 (0.00-0.10); IMMATURE GRAN PERCENT AUTO 0 % (0-1); LYMPHOCYTES ABSOLUTE AUTO 1.28 K/mm3 (0.84-5.20); LYMPHOCYTES PERCENT AUTO 23 % (21-46); MONOCYTES PERCENT AUTO 5 % (4-13); Mean Corpuscular HGB 27.9 pg (26.0-34.0); Mean Corpuscular HGB Conc 31.2 g/dL (31.5-36.5); Mean Corpuscular Volume 90 fL (80-100); Mean Platelet Volume 9.7 fL (9.1-12.4); NEUTROPHILS ABSOLUTE AUTO 3.87 K/mm3 (1.96-9.15); NEUTROPHILS PERCENT AUTO 70 % (41-73); Platelet Count 304 K/mm3 (150-400); RDW Coefficient Variation 15.9 % (11.7-14.2); RDW Standard Deviation 51.8 fL (35.1-46.3); Red Blood Cell Count 5.52 M/mm3 (3.80-5.20); White Blood Cell Count 5.57 K/mm3 (4.00-11.30)
[2021-09-24 16:11] LABS: Alanine Aminotransfer (ALT/SGP 36 U/L (12-78); Albumin, Blood 2.9 g/dL (3.4-5.0); Albumin/Globulin Ratio 0.7 (0.8-1.8); Alk Phos 199 U/L (50-136); Anion Gap 5 mmol/L (6-16); Aspartate Aminotrans (AST/SGOT 42 U/L (12-37); Bilirubin, Total 0.8 mg/dL (0.1-1.0); Blood Urea Nitrogen 18 mg/dL (8-24); Bun/Creatinine Ratio 20.1 (12.0-20.0); CO2, Blood 26 mmol/L (21-32); Chloride, Blood 109 mmol/L (98-108); Globulin, Blood 4.3 g/dL (2.2-4.0); Glomerular Filtration Rate >60 (60-); Glucose, Blood 99 mg/dL (70-99); Potassium, Blood 4.4 mmol/L (3.5-5.5); Sodium, Blood 140 mmol/L (136-145); Total Protein, Blood 7.2 g/dL (6.4-8.2); Troponin I <0.015 ng/mL (0.000-0.040)
[2021-09-24] MEDS ORDERED: METO25 PO (19:46)
[2021-09-24 20:53] LABS: Influenza A, PCR NEGATIVE (NEGATIVE); Influenza B, PCR NEGATIVE (NEGATIVE); Resp Syncytial Virus, PCR NEGATIVE (NEGATIVE); SARS-Cov-2 (COVID-19) PCR, MMC NEGATIVE (NEGATIVE)
== END 2021-09-24 20:05 | disposition home or self-care (01) ==
LOC: ER 14:58
PROVIDERS: Physician Assistant; Student in an Organized Health Care Education/Training Program
DX: I48.91 Unspecified atrial fibrillation (principal); I10 Essential (primary) hypertension; E11.9 Type 2 diabetes mellitus without complications; G40.909 Epilepsy, unspecified, not intractable, without status epilepticus; E03.9 Hypothyroidism, unspecified; I25.2 Old myocardial infarction; Z88.1 Allergy status to other antibiotic agents; Z88.8 Allergy status to other drugs, medicaments and biological substances; Z91.048 Other nonmedicinal substance allergy status; Z88.0 Allergy status to penicillin; Z91.013 Allergy to seafood; Z79.899 Other long term (current) drug therapy; Z79.4 Long term (current) use of insulin
CPT/HCPCS: 0241U; 36415; 71046; 80053; 83735; 83880; 84484; 85025; 93005; 93010; 96374; 96375; 99284-25; A9270; J1885; J7030

== ENCOUNTER → 2021-09-26 | Outpatient (CLI) | payer MEDICARE, OTHER ==
[~2021-09-26] MED LIST changes: +METO25 PO
[2021-09-26 18:04] LABS: Appearance, Urine Hazy (Clear); Bilirubin, Urine Neg (Neg); Blood, Urine 1+ (Neg); Color, Urine Yellow (P-Yellow); Glucose Qualitative, Urine 4+ (Neg); Ketones, Urine Neg (Neg); Leukocyte Esterase, Urine 1+ (Neg); Nitrite, Urine Neg (Neg); Protein, Urine 2+ (Neg); Urobilinogen, Urine 2+ (Normal)
[2021-09-26 18:26] LABS: Bacteria Many /hpf; Calcium Oxalate Crystals Mod /hpf; Red Blood Cells, Urine 0-2 /hpf (0-2)
[2021-09-26 18:27] LABS: Amorphous Light (0-Heavy); Squamous Epithelial Cells Few /hpf (Few)
[2021-09-26 18:36] LABS: Source, Urine Clean Catch
== END | disposition home or self-care (01) ==
LOC: LAB SHORT 15:34
PROVIDERS: Nurse Practitioner Family
DX: R42 Dizziness and giddiness (principal)
CPT/HCPCS: 81001; 87077; 87086; 87186

== ENCOUNTER 2021-09-27 10:22 | Inpatient (IN) | payer MEDICARE, OTHER ==
[~2021-09-27] VITALS: Ht 167.6 cm; Wt 99.8 kg
[2021-09-27 11:15] LABS: BASOPHILS ABSOLUTE AUTO 0.03 K/mm3 (0.00-0.23); BASOPHILS PERCENT AUTO 1 % (0-2); EOSINOPHILS ABSOLUTE AUTO 0.09 K/mm3 (0.00-0.68); EOSINOPHILS PERCENT AUTO 2 % (0-6); Hematocrit 44.1 % (33.0-51.0); Hemoglobin 13.6 g/dL (11.5-16.0); IMMATURE GRAN ABSOLUTE AUTO 0.03 K/mm3 (0.00-0.10); IMMATURE GRAN PERCENT AUTO 1 % (0-1); LYMPHOCYTES ABSOLUTE AUTO 1.01 K/mm3 (0.84-5.20); LYMPHOCYTES PERCENT AUTO 16 % (21-46); MONOCYTES ABSOLUTE AUTO 0.32 K/mm3 (0.16-1.47); MONOCYTES PERCENT AUTO 5 % (4-13); Mean Corpuscular HGB 28.2 pg (26.0-34.0); Mean Corpuscular HGB Conc 30.8 g/dL (31.5-36.5); Mean Corpuscular Volume 91 fL (80-100); Mean Platelet Volume 10.1 fL (9.1-12.4); NEUTROPHILS ABSOLUTE AUTO 4.69 K/mm3 (1.96-9.15); NEUTROPHILS PERCENT AUTO 76 % (41-73); Platelet Count 276 K/mm3 (150-400); RDW Coefficient Variation 15.7 % (11.7-14.2); RDW Standard Deviation 52.9 fL (35.1-46.3); Red Blood Cell Count 4.83 M/mm3 (3.80-5.20); White Blood Cell Count 6.17 K/mm3 (4.00-11.30)
[2021-09-27 11:24] LABS: Alanine Aminotransfer (ALT/SGP 32 U/L (12-78); Albumin, Blood 2.3 g/dL (3.4-5.0); Albumin/Globulin Ratio 0.6 (0.8-1.8); Alk Phos 179 U/L (50-136); Anion Gap 3 mmol/L (6-16); Aspartate Aminotrans (AST/SGOT 42 U/L (12-37); Bilirubin, Total 0.7 mg/dL (0.1-1.0); Blood Urea Nitrogen 19 mg/dL (8-24); Bun/Creatinine Ratio 23.7 (12.0-20.0); CO2, Blood 24 mmol/L (21-32); Calcium, Blood 8.1 mg/dL (8.5-10.1); Chloride, Blood 111 mmol/L (98-108); Globulin, Blood 3.6 g/dL (2.2-4.0); Glomerular Filtration Rate >60 (60-); Glucose, Blood 102 mg/dL (70-99); Potassium, Blood 4.5 mmol/L (3.5-5.5); Sodium, Blood 138 mmol/L (136-145); Total Protein, Blood 5.9 g/dL (6.4-8.2)
[2021-09-27 19:55] LABS: Influenza A, PCR NEGATIVE (NEGATIVE); Influenza B, PCR NEGATIVE (NEGATIVE); Resp Syncytial Virus, PCR NEGATIVE (NEGATIVE); SARS-Cov-2 (COVID-19) PCR, MMC NEGATIVE (NEGATIVE)
[2021-09-28 02:32] LABS: BASOPHILS ABSOLUTE AUTO 0.01 K/mm3 (0.00-0.23); BASOPHILS PERCENT AUTO 0 % (0-2); EOSINOPHILS ABSOLUTE AUTO 0.04 K/mm3 (0.00-0.68); EOSINOPHILS PERCENT AUTO 1 % (0-6); Hematocrit 38.8 % (33.0-51.0); Hemoglobin 12.1 g/dL (11.5-16.0); IMMATURE GRAN ABSOLUTE AUTO 0.01 K/mm3 (0.00-0.10); IMMATURE GRAN PERCENT AUTO 0 % (0-1); LYMPHOCYTES ABSOLUTE AUTO 1.03 K/mm3 (0.84-5.20); LYMPHOCYTES PERCENT AUTO 19 % (21-46); MONOCYTES ABSOLUTE AUTO 0.31 K/mm3 (0.16-1.47); MONOCYTES PERCENT AUTO 6 % (4-13); Mean Corpuscular HGB 28.1 pg (26.0-34.0); Mean Corpuscular HGB Conc 31.2 g/dL (31.5-36.5); Mean Corpuscular Volume 90 fL (80-100); Mean Platelet Volume 9.5 fL (9.1-12.4); NEUTROPHILS PERCENT AUTO 74 % (41-73); Platelet Count 234 K/mm3 (150-400); RDW Coefficient Variation 15.9 % (11.7-14.2); RDW Standard Deviation 53.5 fL (35.1-46.3); Red Blood Cell Count 4.31 M/mm3 (3.80-5.20)
[2021-09-28 02:40] LABS: Alanine Aminotransfer (ALT/SGP 31 U/L (12-78); Albumin, Blood 2.4 g/dL (3.4-5.0); Albumin/Globulin Ratio 0.7 (0.8-1.8); Alk Phos 188 U/L (50-136); Anion Gap 3 mmol/L (6-16); Aspartate Aminotrans (AST/SGOT 44 U/L (12-37); Bilirubin, Total 0.8 mg/dL (0.1-1.0); Blood Urea Nitrogen 17 mg/dL (8-24); Bun/Creatinine Ratio 23.1 (12.0-20.0); CO2, Blood 28 mmol/L (21-32); Calcium, Blood 7.9 mg/dL (8.5-10.1); Chloride, Blood 109 mmol/L (98-108); Creatinine, Blood 0.74 mg/dL (0.40-1.00); Globulin, Blood 3.4 g/dL (2.2-4.0); Glomerular Filtration Rate >60 (60-); Glucose, Blood 105 mg/dL (70-99); Potassium, Blood 4.3 mmol/L (3.5-5.5); Sodium, Blood 140 mmol/L (136-145); Total Protein, Blood 5.8 g/dL (6.4-8.2)
--- NOTE | 2021-09-28 11:36 | NUR ---
DR LANGSTON INCREASED PAIN MEDICATION DOSAGE AND FREQUENCY. PT WAS TREATED WITH 2MG DILAUDID IVP AND 4MG NORBUPENEOPHRINE SL, PT CONTINUES TO CRY OUT IN PAIN REPORTS MINIMAL IMPROVEMENT IN PAIN WITH MEDCIATIONS. PT WITH GOOD SENSATION TO BUE, ABLE TO MOVE ARMS, MOVE FINGERS, GOOD CAP REFILL NOTED. ICE PACK ALSO APPLIED TO LFA FOR PAIN MANAGEMENT
--- NOTE | 2021-09-28 15:56 | NUR ---
PT WITH EXTREMELY DIFFICULT PAIN TO TREAT. AT THE TIME OF THIS NOTE PT HAS RECIEVED A TOTAL OF 8MG DILAUDID IVP AND 8MG BUPRENOPRHINE FOR PAIN, WHICH HAS DECREASED PAIN TO AROUND A 7 AT MOST T/O THE DAY. LT ARM REMAINS IN SPLINT, GOOD CAP REFILL, SENSATION AND MOVEMENT OF LT HAND, SKIN PWD AND INTACT TO LT HAND THAT IS EXPOSED, LT ARM WAS REDUCED IN THE ER PRIOR TO BEING ADMITTED TO SURGICAL FLOOR, PER XRAY LT ARM IS ADEQUATELY REDUCED PRIOR TO SUGARTONG SPLINT BEING APPLIED. PT ALSO C/O PAIN TO RT HAND, PT STS "I KNOW IT IS BROKEN" XRAY REPORTIS REVIEWED THERE WAS NO VISABLE FX PER XRAY REPORT OF RT HAND, THERE IS HOW ABRASIONS, SWELLING AND BRUISING NOTED TO RT HAND. SUTURES IN TACT WITHOUT DRAINAGE TO FOREHEAD, MARILEE-ORBITAL BRUISING NOTED BILAT. PT DID HAVE AN EPISODE OF EPISTAXIS THIS MORNING WHICH RESOLVED WITHOUT TREATMENT.
--- NOTE | 2021-09-28 16:30 | NUR ---
SOFT CERVICAL COLLAR PLACED
[2021-09-29 09:07] LABS: BASOPHILS ABSOLUTE AUTO 0.01 K/mm3 (0.00-0.23); BASOPHILS PERCENT AUTO 0 % (0-2); EOSINOPHILS ABSOLUTE AUTO 0.06 K/mm3 (0.00-0.68); EOSINOPHILS PERCENT AUTO 2 % (0-6); Hematocrit 39.7 % (33.0-51.0); Hemoglobin 12.8 g/dL (11.5-16.0); IMMATURE GRAN ABSOLUTE AUTO 0.01 K/mm3 (0.00-0.10); IMMATURE GRAN PERCENT AUTO 0 % (0-1); LYMPHOCYTES ABSOLUTE AUTO 0.69 K/mm3 (0.84-5.20); LYMPHOCYTES PERCENT AUTO 18 % (21-46); MONOCYTES ABSOLUTE AUTO 0.24 K/mm3 (0.16-1.47); MONOCYTES PERCENT AUTO 6 % (4-13); Mean Corpuscular HGB 28.4 pg (26.0-34.0); Mean Corpuscular HGB Conc 32.2 g/dL (31.5-36.5); Mean Corpuscular Volume 88 fL (80-100); Mean Platelet Volume 9.6 fL (9.1-12.4); NEUTROPHILS ABSOLUTE AUTO 2.73 K/mm3 (1.96-9.15); NEUTROPHILS PERCENT AUTO 73 % (41-73); Platelet Count 210 K/mm3 (150-400); RDW Coefficient Variation 15.3 % (11.7-14.2); RDW Standard Deviation 49.4 fL (35.1-46.3); White Blood Cell Count 3.74 K/mm3 (4.00-11.30)
[2021-09-29 09:19] LABS: Anion Gap 6 mmol/L (6-16); Blood Urea Nitrogen 12 mg/dL (8-24); Bun/Creatinine Ratio 18.8 (12.0-20.0); CO2, Blood 27 mmol/L (21-32); Calcium, Blood 7.9 mg/dL (8.5-10.1); Chloride, Blood 103 mmol/L (98-108); Creatinine, Blood 0.64 mg/dL (0.40-1.00); Glomerular Filtration Rate >60 (60-); Glucose, Blood 156 mg/dL (70-99); Potassium, Blood 4.3 mmol/L (3.5-5.5); Sodium, Blood 136 mmol/L (136-145)
--- NOTE | 2021-09-29 18:08 | NUR ---
SHIFT SUMMARY PATIENT ALERT, ORIENTED, AND ANXIOUS AT TIMES. SAT AT EDGE OF BED BRIEFLY WITH PHYSICAL THERAPY THIS SHIFT. PAIN CONTROLLED WITH IV PAIN MEDS. USES BEDPAN. CARDIOLOGY CONSULTED BUT DID NOT SEE PATIENT THIS SHIFT. TOLERATING ADA DIET AND FLUIDS. PLAN TO CONTINUE WORKING WITH PHYSICAL THERAPY, COMPLETE CARDIOLOGY CONSULT, AND WORK TOWARD SNF DISCHARGE. WILL REPORT TO HORTICULTURE TEACHER RN.
[2021-09-30 05:20] LABS: BASOPHILS ABSOLUTE AUTO 0.01 K/mm3 (0.00-0.23); BASOPHILS PERCENT AUTO 0 % (0-2); EOSINOPHILS ABSOLUTE AUTO 0.08 K/mm3 (0.00-0.68); EOSINOPHILS PERCENT AUTO 2 % (0-6); Hematocrit 37.7 % (33.0-51.0); Hemoglobin 12.3 g/dL (11.5-16.0); IMMATURE GRAN ABSOLUTE AUTO 0.01 K/mm3 (0.00-0.10); IMMATURE GRAN PERCENT AUTO 0 % (0-1); LYMPHOCYTES ABSOLUTE AUTO 0.68 K/mm3 (0.84-5.20); LYMPHOCYTES PERCENT AUTO 18 % (21-46); MONOCYTES ABSOLUTE AUTO 0.29 K/mm3 (0.16-1.47); MONOCYTES PERCENT AUTO 8 % (4-13); Mean Corpuscular HGB 28.5 pg (26.0-34.0); Mean Corpuscular HGB Conc 32.6 g/dL (31.5-36.5); Mean Corpuscular Volume 87 fL (80-100); Mean Platelet Volume 9.6 fL (9.1-12.4); NEUTROPHILS ABSOLUTE AUTO 2.75 K/mm3 (1.96-9.15); NEUTROPHILS PERCENT AUTO 72 % (41-73); Platelet Count 216 K/mm3 (150-400); RDW Coefficient Variation 15.3 % (11.7-14.2); RDW Standard Deviation 49.4 fL (35.1-46.3); Red Blood Cell Count 4.32 M/mm3 (3.80-5.20); White Blood Cell Count 3.82 K/mm3 (4.00-11.30)
[2021-09-30 06:24] LABS: Albumin, Blood 2.4 g/dL (3.4-5.0); Anion Gap 6 mmol/L (6-16); Blood Urea Nitrogen 12 mg/dL (8-24); Bun/Creatinine Ratio 19.3 (12.0-20.0); CO2, Blood 29 mmol/L (21-32); Calcium, Blood 8.2 mg/dL (8.5-10.1); Chloride, Blood 103 mmol/L (98-108); Creatinine, Blood 0.62 mg/dL (0.40-1.00); Glomerular Filtration Rate >60 (60-); Glucose, Blood 98 mg/dL (70-99); Phosphorus, Blood 3.2 mg/dL (2.5-4.9); Potassium, Blood 4.2 mmol/L (3.5-5.5); Sodium, Blood 138 mmol/L (136-145)
--- NOTE | 2021-09-30 17:34 | NUR ---
PATIENT CURRENTLY LYING IN BED WITH HEAD ELEVATED ENOUGH TO EAT. HER SON IS FEEDING HER AT THIS TIME. CALL LIGHT AND WATER IN REACH. ABLE TO MAKE NEEDS AND WANTS KNOWN. MEDICATED PER ORDERS FOR PAIN TODAY, MEDS ARE EFFECTIVE SHE STATES. UNABLE TO GET ORTOSTATIC VS DUE TO PATIENT UNABLE TO STAND AT THIS TIME. PATIENT USES BEDPAN BUT HAS BEEN INCONTINENT AT TIMES TODAY. AAO X 4. SOFT COLLAR REMOVED ORDER STATES FOR PATIENTS COMFORT IF SHE DESIRES. SHE DESIRED THE COLLAR BE REMOVED. SLING AND SOFT CAST TO LEFT ARM ON. NO SIGNS OR SYMPTOMS ACUTE DISTRESS NOTED AT THIS TIME. WILL MONITOR.
[2021-10-01 05:19] LABS: BASOPHILS ABSOLUTE AUTO 0.01 K/mm3 (0.00-0.23); BASOPHILS PERCENT AUTO 0 % (0-2); EOSINOPHILS ABSOLUTE AUTO 0.14 K/mm3 (0.00-0.68); EOSINOPHILS PERCENT AUTO 4 % (0-6); Hematocrit 38.9 % (33.0-51.0); Hemoglobin 12.3 g/dL (11.5-16.0); IMMATURE GRAN ABSOLUTE AUTO 0.01 K/mm3 (0.00-0.10); IMMATURE GRAN PERCENT AUTO 0 % (0-1); LYMPHOCYTES PERCENT AUTO 23 % (21-46); MONOCYTES PERCENT AUTO 9 % (4-13); Mean Corpuscular HGB 28.1 pg (26.0-34.0); Mean Corpuscular HGB Conc 31.6 g/dL (31.5-36.5); Mean Corpuscular Volume 89 fL (80-100); Mean Platelet Volume 9.9 fL (9.1-12.4); NEUTROPHILS ABSOLUTE AUTO 2.19 K/mm3 (1.96-9.15); NEUTROPHILS PERCENT AUTO 63 % (41-73); Platelet Count 211 K/mm3 (150-400); RDW Coefficient Variation 15.6 % (11.7-14.2); RDW Standard Deviation 50.9 fL (35.1-46.3); Red Blood Cell Count 4.38 M/mm3 (3.80-5.20); White Blood Cell Count 3.45 K/mm3 (4.00-11.30)
[2021-10-01 05:36] LABS: Albumin, Blood 2.3 g/dL (3.4-5.0); Anion Gap 4 mmol/L (6-16); Blood Urea Nitrogen 9 mg/dL (8-24); Bun/Creatinine Ratio 13.3 (12.0-20.0); CO2, Blood 30 mmol/L (21-32); Calcium, Blood 8.6 mg/dL (8.5-10.1); Chloride, Blood 104 mmol/L (98-108); Creatinine, Blood 0.68 mg/dL (0.40-1.00); Glomerular Filtration Rate >60 (60-); Glucose, Blood 109 mg/dL (70-99); Potassium, Blood 4.3 mmol/L (3.5-5.5); Sodium, Blood 138 mmol/L (136-145)
--- NOTE | 2021-10-01 05:50 | NUR ---
PT IS A/OX3. ABLE TO MAKE HER NEEDS KNOWN. NO EVENTS OVERNIGHT. LUE IN SOFT CAST AND SLING. GOOD CSM'S. FOREHEAD LACERATIONS MACROECONOMICS PROFESSOR W/SUTURES. SEVERAL BRUISES TO FACE/EYES. TELE: SR. ON CONTINOUS PULSE OX. ROOM AIR. USES BEDPAN. PAIN MANAGED W/BOTH SCHEDULED AND PRN MEDS PER EMAR.
--- NOTE | 2021-10-01 12:04 | NUR ---
Per chart review with Dr. Patterson, he anticipates pt will be ready for discharge tomorrow to a SNF. I faxed over SNF packet to Andie at [facility] today. I pplan to meet with the patient in her room to discuss her preferences and concerns for discharge.
--- NOTE | 2021-10-01 13:30 | NUR ---
Patient is lying in bed and alert. Patient immediately tells me about the fall and the damage caused by the fall. She also explains about the possible heart issues that may have led to the fall. Patient gets tearful when talking about how difficult managing the pain has been, about how traumatized her son has felt by witnessing the patient's fall and about how she will be unable to care for her father while she is recovering. Patient states that her [facility] is the only place of peace and strength during this season. I reinforce helpful attitudes and practices, encourage self-care, and provide gentle classification counselor and prayer. Patient responds well and shows signs of reduced stress and an elevated mood.
--- NOTE | 2021-10-01 15:03 | NUR ---
Per Andie Bhatia, patient is cleared to transfer to [facility]. Per chart review with Dr. Cox, she requests the patient stay another night at [facility]. We anticipate discharge tomorrow and I plan to arrange transportation.
--- NOTE | 2021-10-01 17:56 | NUR ---
PATIENT CURRENTLY LYING IN BED WITH NO SIGNS OR SYMPTOMS ACUTE DISTRESS NOTED. SOFT TOUCH CALL LIGHT IN EASY REACH. ABLE TO MAKE NEEDS AND WANTS KNOWN. THE DR CHANGED PATIENTS PAIN MEDS TODAY. SHE WORKED WITH THERAPY TODAY. WAS NOT ABLE TO SIT EOB WITH OT, BUT DID WITH PT FOR 7 MINUTES AND TOLERATED FAIR, DID COMPLAIN OF SOME DIZZINESS. PATIENT IS AAO X 4. USE OF BEDPAN, CONTINENT OF BLADDER. PATIENT IS UNABLE TO FEED SELF, APPETITE GOOD. SLING AND CAST TO LEFT ARM INTACT AND ELEVATED, FOREHEAD WITH SUTURES, NO DRAINAGE NOTED. WILL MONITOR.
[2021-10-02 04:23] LABS: BASOPHILS ABSOLUTE AUTO 0.02 K/mm3 (0.00-0.23); BASOPHILS PERCENT AUTO 1 % (0-2); EOSINOPHILS ABSOLUTE AUTO 0.14 K/mm3 (0.00-0.68); EOSINOPHILS PERCENT AUTO 3 % (0-6); Hemoglobin 12.9 g/dL (11.5-16.0); IMMATURE GRAN ABSOLUTE AUTO 0.01 K/mm3 (0.00-0.10); IMMATURE GRAN PERCENT AUTO 0 % (0-1); LYMPHOCYTES ABSOLUTE AUTO 0.97 K/mm3 (0.84-5.20); LYMPHOCYTES PERCENT AUTO 24 % (21-46); MONOCYTES ABSOLUTE AUTO 0.36 K/mm3 (0.16-1.47); MONOCYTES PERCENT AUTO 9 % (4-13); Mean Corpuscular HGB 27.9 pg (26.0-34.0); Mean Corpuscular HGB Conc 32.3 g/dL (31.5-36.5); Mean Corpuscular Volume 86 fL (80-100); Mean Platelet Volume 9.1 fL (9.1-12.4); NEUTROPHILS ABSOLUTE AUTO 2.62 K/mm3 (1.96-9.15); NEUTROPHILS PERCENT AUTO 64 % (41-73); Platelet Count 215 K/mm3 (150-400); RDW Coefficient Variation 15.6 % (11.7-14.2); RDW Standard Deviation 49.1 fL (35.1-46.3); Red Blood Cell Count 4.63 M/mm3 (3.80-5.20); White Blood Cell Count 4.12 K/mm3 (4.00-11.30)
[2021-10-02 04:48] LABS: Anion Gap 5 mmol/L (6-16); Blood Urea Nitrogen 12 mg/dL (8-24); Bun/Creatinine Ratio 15.9 (12.0-20.0); CO2, Blood 29 mmol/L (21-32); Calcium, Blood 8.6 mg/dL (8.5-10.1); Chloride, Blood 104 mmol/L (98-108); Creatinine, Blood 0.75 mg/dL (0.40-1.00); Glomerular Filtration Rate >60 (60-); Glucose, Blood 108 mg/dL (70-99); Potassium, Blood 4.6 mmol/L (3.5-5.5); Sodium, Blood 138 mmol/L (136-145)
--- NOTE | 2021-10-02 05:37 | NUR ---
VSS. PAIN MANAGED W/ SCHEDULED AND PRN MEDICATIONS. L ARM SOFT CAST/SPLINT. FOREHEAD LAC: +SUTURES/EDEMA. FACIAL ECCHYMOSIS. R ARM ECCHYMOSIS W/ SCABS. PT USING BEDPAN. NO ISSUES THROUGHOUT SHIFT
[2021-10-02 10:03] LABS: Influenza A, PCR NEGATIVE (NEGATIVE); Influenza B, PCR NEGATIVE (NEGATIVE); Resp Syncytial Virus, PCR NEGATIVE (NEGATIVE); SARS-Cov-2 (COVID-19) PCR, MMC NEGATIVE (NEGATIVE)
--- NOTE | 2021-10-02 14:09 | NUR ---
DISCHARGE: REPORT CALLED TO LUH QUINTANILLA AT [facility]. PATIENT AWARE OF TRANSFER. HEART CENTER AWARE OF PATIENT NEEDING HEART MONITOR PLACED BEFORE LEAVING AT 1530.
--- NOTE | 2021-10-02 15:09 | NUR ---
Per chart review with Dr. Cox patient is appropriate for discharge to [facility] by veronica. When I went to speak with the patient she said she would prefer [facility]. Andie with [facility] confirmed there is no availability at [facility] until next week possibily Friday. Patient agreed to transfer to [facility]. [facility] stated pt is a paid prior client due to insurance not covering transport. They suggest asking [facility] to cover cost. Andie with [facility] [employer] confirmed they would cover transport from [facility] to [facility]. Patient discharge packet, hand-carry rx's, and [facility] signed PCS has been placed in patient's room 207 lock box and transportation ETA is 3:30PM. Patient denies barriers to discharge.
--- NOTE | 2021-10-02 17:11 | NUR ---
PATIENT DISCHARGED AT THIS TIME VIA [facility] TO [facility]
== END 2021-10-02 17:45 | DRG 184 ==
LOC: ER 10:22 → ERHOLD 10:23 → SURS 10:23 → ERHOLD 11:43 → SURS 20:22
PROVIDERS: Family Medicine; Internal Medicine Endocrinology, Diabetes & Metabolism; Student in an Organized Health Care Education/Training Program; ADMIT Family Medicine
PROC: 0HQ1XZZ Repair Face Skin, External Approach (ICD-10-PCS; principal; 2021-09-27)
PROC: 3E02340 Introduction of Influenza Vaccine into Muscle, Percutaneous Approach (ICD-10-PCS; 2021-09-27)
DX: S22.42XA Multiple fractures of ribs, left side, initial encounter for closed fracture (principal); S52.502A Unspecified fracture of the lower end of left radius, initial encounter for closed fracture; I47.2 Ventricular tachycardia; N39.0 Urinary tract infection, site not specified; R55 Syncope and collapse; E06.3 Autoimmune thyroiditis; E11.9 Type 2 diabetes mellitus without complications; E03.9 Hypothyroidism, unspecified; I25.10 Atherosclerotic heart disease of native coronary artery without angina pectoris; I95.1 Orthostatic hypotension; E66.9 Obesity, unspecified; Z20.822 Contact with and (suspected) exposure to COVID-19; I25.2 Old myocardial infarction; I05.9 Rheumatic mitral valve disease, unspecified; Z23 Encounter for immunization; E66.01 Morbid (severe) obesity due to excess calories; G25.81 Restless legs syndrome; I05.0 Rheumatic mitral stenosis; W18.30XA Fall on same level, unspecified, initial encounter; G40.909 Epilepsy, unspecified, not intractable, without status epilepticus; B35.4 Tinea corporis; E55.9 Vitamin D deficiency, unspecified; Z98.890 Other specified postprocedural states; Z90.49 Acquired absence of other specified parts of digestive tract; Z95.5 Presence of coronary angioplasty implant and graft; Z90.710 Acquired absence of both cervix and uterus; Z88.8 Allergy status to other drugs, medicaments and biological substances; Z88.0 Allergy status to penicillin; Z91.013 Allergy to seafood; Z79.4 Long term (current) use of insulin; Z79.899 Other long term (current) drug therapy; S01.81XA Laceration without foreign body of other part of head, initial encounter; I48.0 Paroxysmal atrial fibrillation; B96.20 Unspecified Escherichia coli [E. coli] as the cause of diseases classified elsewhere; G89.29 Other chronic pain; M54.9 Dorsalgia, unspecified; Z68.35 Body mass index [BMI] 35.0-35.9, adult
CPT/HCPCS: 0241U; 12051; 25605; 36415; 70450; 71250; 72125; 73030; 73060; 73090; 73100; 73110; 73120; 74176; 80048; 80053; 80069; 82947; 84484; 85025; 90471; 90714; 93005; 93010; 93246; 94762; 96361-59; 96374-59; 96376; 96376-59; 97110; 97162; 97166; 97530; 99285-25; A9270; G0378; J1170; J1815; J7030

== ENCOUNTER 2022-05-13 20:45 | Inpatient (IN) | payer MEDICARE, OTHER ==
[~2022-05-13] VITALS: Ht 167.6 cm; Wt 94.4 kg
[~2022-05-13 20:45] MED LIST changes: +BUPRENORPHINE HC2 M1 SL; +BUPROPION XL150 M1 PO; +EUTHYROX100 MCG PO; +FOSAMAX70 MG PO; +Insulin Glargine-Yfg SC; +Latanoprost BOTHEYES; +Lopressor 25 mg25 MG PO; +METO25ER PO; +SULTRIDS PO; +TIMO.25OPS BOTHEYES
[2022-05-13 22:08] LABS: BASOPHILS ABSOLUTE AUTO 0.02 K/mm3 (0.00-0.23); BASOPHILS PERCENT AUTO 1 % (0-2); EOSINOPHILS ABSOLUTE AUTO 0.07 K/mm3 (0.00-0.68); EOSINOPHILS PERCENT AUTO 2 % (0-6); Hematocrit 44.1 % (33.0-51.0); Hemoglobin 14.3 g/dL (11.5-16.0); IMMATURE GRAN ABSOLUTE AUTO 0.01 K/mm3 (0.00-0.10); IMMATURE GRAN PERCENT AUTO 0 % (0-1); LYMPHOCYTES ABSOLUTE AUTO 1.33 K/mm3 (0.84-5.20); LYMPHOCYTES PERCENT AUTO 33 % (21-46); MONOCYTES ABSOLUTE AUTO 0.21 K/mm3 (0.16-1.47); MONOCYTES PERCENT AUTO 5 % (4-13); Mean Corpuscular HGB 29.1 pg (26.0-34.0); Mean Corpuscular HGB Conc 32.4 g/dL (31.5-36.5); Mean Corpuscular Volume 90 fL (80-100); Mean Platelet Volume 10.3 fL (9.1-12.4); NEUTROPHILS ABSOLUTE AUTO 2.41 K/mm3 (1.96-9.15); NEUTROPHILS PERCENT AUTO 60 % (41-73); Platelet Count 187 K/mm3 (150-400); RDW Coefficient Variation 13.1 % (11.7-14.2); RDW Standard Deviation 42.7 fL (35.1-46.3); Red Blood Cell Count 4.91 M/mm3 (3.80-5.20); White Blood Cell Count 4.05 K/mm3 (4.00-11.30)
[2022-05-13 22:20] LABS: Albumin/Globulin Ratio 0.8 (0.8-1.8); Bilirubin, Total 0.7 mg/dL (0.1-1.0); Bun/Creatinine Ratio 17.1 (12.0-20.0); Calcium, Blood 8.4 mg/dL (8.5-10.1); Creatinine, Blood 0.88 mg/dL (0.40-1.00); Globulin, Blood 3.9 g/dL (2.2-4.0); Potassium, Blood 4.4 mmol/L (3.5-5.5); Total Protein, Blood 6.9 g/dL (6.4-8.2)
[2022-05-14] MEDS ORDERED: BUPRENORPHINE HC2 M1 SL (01:26)
[2022-05-14] MEDS ORDERED: FOSAMAX70 MG PO (01:27)
[2022-05-14] MEDS ORDERED: ATORVASTATIN CA80 M1 PO (01:28)
[2022-05-14] MEDS ORDERED: CLOP75 PO (01:30)
[2022-05-14] MEDS ORDERED: ESCI20 PO (01:31)
[2022-05-14] MEDS ORDERED: Levemir Flextouch SC (01:33)
[2022-05-14] MEDS ORDERED: Latanoprost BOTHEYES (01:34)
[2022-05-14] MEDS ORDERED: METO25ER PO (01:36)
[2022-05-14] MEDS ORDERED: NALOXONE H0.4 MG/1 M IV (01:37)
[2022-05-14] MEDS ORDERED: Lyrica25 MG PO (01:38)
[2022-05-14] MEDS ORDERED: RANEXA1000 M4 PO (01:40)
[2022-05-14] MEDS ORDERED: XARELTO10 M1 PO (01:41)
[2022-05-14] MEDS ORDERED: TIMO.25OPS BOTHEYES (01:42)
--- NOTE | 2022-05-14 09:33 | NUR ---
CARE ASSUMPTION PT A&O X4. BP LOW, OTHERWISE VSS. MONITOR SHOWING SR, HR 60's. SPO2 > 92% ON RA. PT DENIES LIGHTHEADEDNESS/DIZZINESS WHILE LAYING IN BED, REPORTS LIGHTHEADEDNESS/DIZZINESS PREVIOUSLY WHEN GETTING UP. THIS RN ENCOURAGING PT TO CALL FOR STAFF ASSIST BEFORE GETTING UP. PT REPORTS 7/10 ABD PAIN THIS AM, REPORTING PAIN CHRONIC D/T MULTIPLE PAST PROCEDURES. PT REPORTS REST & MEDICATION HELP DECREASE PAIN. NS GTT COMPLETE. ECHO DONE AT BEDSIDE THIS AM.
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
--- NOTE | 2022-05-14 18:46 | NUR ---
SHIFT SUMMARY PT CONTINUES TO BE A&O X4. PT BP LOW WHEN SITTING/STANDING UP W/ PT REPORT OF LIGHTHEADEDNESS. OTHERWISE VSS. MONITOR SHOWING SB-SR, HR 50s-60s. SPO2 > 92% ON RA. PT REPORTING CHRONIC ABD PAIN WHICH PT REPORTS IMPROVEMENT W/ MEDICATION. ECHO DONE AT BEDSIDE IN THIS AM.
[2022-05-15 03:46] LABS: BASOPHILS ABSOLUTE AUTO 0.02 K/mm3 (0.00-0.23); BASOPHILS PERCENT AUTO 0 % (0-2); EOSINOPHILS ABSOLUTE AUTO 0.09 K/mm3 (0.00-0.68); EOSINOPHILS PERCENT AUTO 2 % (0-6); Hematocrit 40.5 % (33.0-51.0); IMMATURE GRAN ABSOLUTE AUTO 0.01 K/mm3 (0.00-0.10); IMMATURE GRAN PERCENT AUTO 0 % (0-1); LYMPHOCYTES ABSOLUTE AUTO 1.46 K/mm3 (0.84-5.20); LYMPHOCYTES PERCENT AUTO 32 % (21-46); MONOCYTES ABSOLUTE AUTO 0.36 K/mm3 (0.16-1.47); MONOCYTES PERCENT AUTO 8 % (4-13); Mean Corpuscular HGB 29.2 pg (26.0-34.0); Mean Corpuscular HGB Conc 32.1 g/dL (31.5-36.5); Mean Corpuscular Volume 91 fL (80-100); Mean Platelet Volume 10.4 fL (9.1-12.4); NEUTROPHILS ABSOLUTE AUTO 2.64 K/mm3 (1.96-9.15); NEUTROPHILS PERCENT AUTO 58 % (41-73); Platelet Count 174 K/mm3 (150-400); RDW Coefficient Variation 13.3 % (11.7-14.2); RDW Standard Deviation 44.4 fL (35.1-46.3); Red Blood Cell Count 4.45 M/mm3 (3.80-5.20); White Blood Cell Count 4.58 K/mm3 (4.00-11.30)
[2022-05-15 04:04] LABS: Albumin, Blood 2.7 g/dL (3.4-5.0); Albumin/Globulin Ratio 0.8 (0.8-1.8); Bilirubin, Total 0.9 mg/dL (0.1-1.0); Bun/Creatinine Ratio 26.8 (12.0-20.0); Creatinine, Blood 0.79 mg/dL (0.40-1.00); Globulin, Blood 3.3 g/dL (2.2-4.0); Magnesium, Blood 1.8 mg/dL (1.6-2.4); Phosphorus, Blood 4.8 mg/dL (2.5-4.9); Potassium, Blood 4.6 mmol/L (3.5-5.5)
--- NOTE | 2022-05-15 05:55 | NUR ---
SHIFT SUMMARY NO ACUTE CHANGES THIS SHIFT. PT A&OX4. SP02>92% ON RA. TELEMETRY SHOWS NSR/SBR HR MOSTLY 50'S. PT C/O OF ABD PAIN, MEDICATED W/ NIGHTTIME MEDS PER EMAR. HEATING PAD GIVEN. ENCOURAGED REPOSITIONING. PT UP TO BATHROOM W/ FWW TO VOID. NO C/O OF DIZZINESS. PT SLEPT MOST OF NIGHT. CALL LIGHT IN REACH.
--- NOTE | 2022-05-15 08:42 | NUR ---
CARE ASSUMPTION / MEDICAL STATUS PT A&O X4. VSS. SPO2 > 92% ON RA. MONITOR SHOWING SB-SR, HR 50s-60s. BURDEN TO BEDSIDE W/ ORDERS FOR PT TO BE MEDICAL W/ TELE STATUS & W/ OKAY FOR PT TO CHANGE TID BUPRENORPHINE ORDER TO Q4H SCHEDULE PT TAKES AT HOME. PT REPORTING PAIN WAKES HER UP IN THE NIGHT. SEE NEW ORDER.
--- NOTE | 2022-05-15 13:53 | NUR ---
Patient talks about her personal struggles and her concerns about her medical conditions. I provide prayer and therapeutic listening. pt responds well and shows signs of increased peace. I will continue to remain available to patient and family.
--- NOTE | 2022-05-15 15:56 | NUR ---
TRANSFER TO MEDICAL FLOOR PT CONTINUES TO BE A&O X4. VSS. SPO2 > 92% ON RA. MONITOR SHOWING SB-SR, HR 50s-60s. PT REPORTING DIZZINESS W/ STANDING. PT SBA W/ FWW TO BATHROOM. PT MEDICATED FOR ABD PAIN PER EMAR W/ PT REPORT OF IMPROVEMENT. REPORT GIVEN TO ACCEPTING MEDICAL FLOOR RN ASSUMING CARE OF PT. PT NOW BEING TRANSFERED TO MEDICAL FLOOR RM 324 BY PCT IN WHEELCHAIR W/ PT BELONGINGS @ THIS TIME.
--- NOTE | 2022-05-15 17:57 | NUR ---
SHIFT SUMMARY- PT ALERT AND ORIENTED 1PA FOR TRANSFERS AND AMBULATION. PT BLIND IN THE LEFT EYE, NO PUPIL RESPONSE NOTED ON ASSESSMENT. PT STATES SHE HAS BEEN BLIND IN THE EYE FOR THE PAST 6 MONTHS. PLAN IS FOR THE PT TO DISCHARGE HOME TOMORROW WITH HOME HEALTH PER REPORT. PT CURRENTLY SITTING UP IN BED, CALL LIGHT IN REACH, NO S&S OF DISTRESS. BPS TEND TO RUN LOW. PARAMETERS FOR BP MEDS. WILL CTM AND PASS ON IN BEDSIDE REPORT TO NIGHT RN.
--- NOTE | 2022-05-16 05:00 | NUR ---
SHIFT SUMMARY PT ALERT AND ORIENTED X4. AFEBRILE. PULSE 50-60'S. ON RA SATS OVER 93%. C/O ABDOMINAL PAIN. RELIEF W/ SCHEDULED Q4 MEDICATION. DIZZY WHEN STANDING. X1 SBA FOR ADL'S. IN BED SLEEPING WITH CALL ALARM AT SIDE, WILL CONTINUE TO MONITOR UNTIL REPORT GIVEN TO DAYSHIFT RN
[2022-05-16 05:41] LABS: BASOPHILS ABSOLUTE AUTO 0.03 K/mm3 (0.00-0.23); BASOPHILS PERCENT AUTO 1 % (0-2); EOSINOPHILS ABSOLUTE AUTO 0.06 K/mm3 (0.00-0.68); EOSINOPHILS PERCENT AUTO 1 % (0-6); Hematocrit 43.2 % (33.0-51.0); Hemoglobin 13.9 g/dL (11.5-16.0); IMMATURE GRAN ABSOLUTE AUTO 0.01 K/mm3 (0.00-0.10); IMMATURE GRAN PERCENT AUTO 0 % (0-1); LYMPHOCYTES PERCENT AUTO 24 % (21-46); MONOCYTES ABSOLUTE AUTO 0.29 K/mm3 (0.16-1.47); MONOCYTES PERCENT AUTO 6 % (4-13); Mean Corpuscular HGB 28.8 pg (26.0-34.0); Mean Corpuscular HGB Conc 32.2 g/dL (31.5-36.5); Mean Corpuscular Volume 89 fL (80-100); NEUTROPHILS ABSOLUTE AUTO 3.04 K/mm3 (1.96-9.15); NEUTROPHILS PERCENT AUTO 67 % (41-73); Platelet Count 161 K/mm3 (150-400); RDW Coefficient Variation 13.2 % (11.7-14.2); RDW Standard Deviation 43.2 fL (35.1-46.3); Red Blood Cell Count 4.83 M/mm3 (3.80-5.20); White Blood Cell Count 4.53 K/mm3 (4.00-11.30)
[2022-05-16 06:03] LABS: Albumin/Globulin Ratio 0.9 (0.8-1.8); Bilirubin, Total 0.7 mg/dL (0.1-1.0); Bun/Creatinine Ratio 29.9 (12.0-20.0); Calcium, Blood 9.3 mg/dL (8.5-10.1); Creatinine, Blood 0.8 mg/dL (0.40-1.00); Globulin, Blood 3.5 g/dL (2.2-4.0); Magnesium, Blood 1.9 mg/dL (1.6-2.4); Phosphorus, Blood 4.4 mg/dL (2.5-4.9); Potassium, Blood 3.8 mmol/L (3.5-5.5); Total Protein, Blood 6.5 g/dL (6.4-8.2)
--- NOTE | 2022-05-16 13:41 | NUR ---
AT 11AM BP WAS 110/75. 2.5 M MIDODRONE ADMINISTERED. AT NOON 2 BUPRENORPHINE WERE ADMINISTERED FOR CHROIC PAIN. AT 1245 BP IS 105/70, PULSE 65. MIDODRONE 5 MG ADMINISTERED AT THIS TIME. DISCUSSING WITH PATIENT IF BUPRENORPHINE DECREASES HER PRESSURE- SHE DOESN'T THINK IT SHOULD.
--- NOTE | 2022-05-16 17:57 | NUR ---
PATIENT HAD A MEDICATION INCREASE OF MIDODRINE THIS SHIFT. 5MG APPEARS TO BE A FITTIN DOSE. LAST BP 125/86. TIMOLOL EYE DROPS ARE DISCONTINUED THEY ARE A BETABLOCKER. PATIENT IS TO FOLLOW UP WITH OPTHAMOLOGIST WITHIN ONE WEEK OF DISCHARGE FOR FURTHER DIRECTION. PATIENT CONTINUES TO HAVE MORE SWELLING IN THE LEFT LEG. SOME PAIN WITH TOUCH. OTHERWISE PAINFREE. DR. SHEA IS NOT ON SITE TOMORROW BUT BELIEVES THAT IF PATIENTS ORTHOSTATIC BP IS GOOD, SHE WILL PROBABLY BE GOING HOME TOMORROW. SHE LIVES IN HER HOME WITH HER NEPHEW.
--- NOTE | 2022-05-17 03:37 | NUR ---
SUMMARY: PT A/OX4, CALLS APPROPRIATELY TO SPECIFY NEEDS AND IS PLEASANT AND COOPERATIVE W/CARE. SHE'S UP W/1PA AND FWW. PT HAD BM THIS SHIFT SO REFUSED MIRILAX. CHRONIC ABDO PAIN PERSISTS BUT PT RECIEVES SCHEDULED BUPRENORPHINE FOR TOLERABLE RELIEF. BP IMPROVING WITH SCHEDULED MIDODRINE. SHE REMAINS S.ROBYN/NSR ON TELEMETRY, HR 50'S-60'S BPM. NO ACUTE CHANGES, VSS/AFEBRILE. PLAN FOR POSSIBLE D/C TODAY. WCTM AND REPORT TO DAY RN.
[2022-05-17 05:35] LABS: BASOPHILS ABSOLUTE AUTO 0.01 K/mm3 (0.00-0.23); BASOPHILS PERCENT AUTO 0 % (0-2); EOSINOPHILS ABSOLUTE AUTO 0.07 K/mm3 (0.00-0.68); EOSINOPHILS PERCENT AUTO 2 % (0-6); Hematocrit 42.2 % (33.0-51.0); Hemoglobin 13.6 g/dL (11.5-16.0); IMMATURE GRAN ABSOLUTE AUTO 0.01 K/mm3 (0.00-0.10); IMMATURE GRAN PERCENT AUTO 0 % (0-1); LYMPHOCYTES PERCENT AUTO 30 % (21-46); MONOCYTES ABSOLUTE AUTO 0.41 K/mm3 (0.16-1.47); MONOCYTES PERCENT AUTO 10 % (4-13); Mean Corpuscular HGB 28.9 pg (26.0-34.0); Mean Corpuscular HGB Conc 32.2 g/dL (31.5-36.5); Mean Corpuscular Volume 90 fL (80-100); Mean Platelet Volume 10.1 fL (9.1-12.4); NEUTROPHILS ABSOLUTE AUTO 2.47 K/mm3 (1.96-9.15); NEUTROPHILS PERCENT AUTO 58 % (41-73); Platelet Count 167 K/mm3 (150-400); RDW Coefficient Variation 13.2 % (11.7-14.2); RDW Standard Deviation 43.2 fL (35.1-46.3); White Blood Cell Count 4.27 K/mm3 (4.00-11.30)
[2022-05-17 05:58] LABS: Albumin, Blood 2.8 g/dL (3.4-5.0); Albumin/Globulin Ratio 0.8 (0.8-1.8); Bilirubin, Total 0.7 mg/dL (0.1-1.0); Bun/Creatinine Ratio 27.6 (12.0-20.0); Calcium, Blood 9.4 mg/dL (8.5-10.1); Creatinine, Blood 0.91 mg/dL (0.40-1.00); Globulin, Blood 3.4 g/dL (2.2-4.0); Magnesium, Blood 1.9 mg/dL (1.6-2.4); Phosphorus, Blood 4.1 mg/dL (2.5-4.9); Potassium, Blood 4.2 mmol/L (3.5-5.5); Total Protein, Blood 6.2 g/dL (6.4-8.2)
--- NOTE | 2022-05-17 10:55 | NUR ---
orthostatic bp completed: laying- 107/74, 65 sitting- 106/82, 80 standing 48/38, 99- readings obtained two minutes apart
--- NOTE | 2022-05-17 12:09 | NUR ---
CARDIOLOTIST DR. MENDOZA WAS HERE TO VISIT WITH THE PATIENT. SHE SAID THAT HE TOLD HER HE WOULD LOOK AT HER MEDICATION, REVIEW HER CHART AND TRY TO FIGURE OUT WHAT MAY BE GOING ON. PATIENT TOOK DOWN HIS NAME AND IS WAITING TO FIND OUT ANY INFO THAT MIGHT HELP HER TO HEAL.
--- NOTE | 2022-05-17 16:07 | NUR ---
BLOOD PRESSURE THIS AFTERNOON IS: 1515- 148/92, 54 1601- 141/84, 54 CHANGE FROM THE USUAL HYPOTENSION THAT SHE HAS BEEN EXPERIENCING.
--- NOTE | 2022-05-17 17:15 | NUR ---
PATIENT BP IRREGULAR THIS SHIFT. ORTHOSTATICS COMPLETED WITH THE LOWEST BEING 48/[address] PICKENS ASKED FOR CARDIO CONSULT. CARDIOLOGY CONSULT CALLED IN AND COMPLETED, INSPIRING LABS AND TESTING. AT THIS TIME, A URINE IS STILL NEEDED AND ALL SUPPLIES ARE IN THE ROOM. AFTERNOON BP INCREASED TO 148/92, FOR NO APPARENT REASON- AN HOUR LATER 141/84. DR. PICKENS WAS NOTIFIED. OKAY'D MIDIRONE HOLD IF SYSTOLIC IS STILL 140'S NEXT SCHEDULED DOSE (1800). HER BUPRENORPHINE WAS THEN GIVEN FOR PAIN MANAGEMENT SCHEDULED, AROUND 1515 AN HOUR AFTER ADMINISTRATION OF PAIN MED BP IS 125/87. SO MIDIRONE WILL BE GIVEN AT [address] PICKENS WAS NOTIFIED AND IS AWARE THAT THE BP WENT UP THIS AFTERNOON, AND IS STILL CONCERNED ABOUT ORTHOSTATIC HYPOTENSION IF THE PATIENT STANDS BECAUSE OF THE VERY LOW STANDING BP OF THIS AM. WE WILL ATTEMPT TO COLLECT URINE BEFORE END OF THIS SHIFT.
--- NOTE | 2022-05-18 04:21 | NUR ---
BLOOD PRESSURE 130'S SYSTOLIC IN EVENING AND AFTER 1999 PAIN MEDICATION. AT 0400, PRESSURE HAD DROPPED BACK INTO THE 105 RANGE. PATIENT WAS ABLE TO AMBULATE SAFELY WITH STANDBY ASSIST ON BOTH SIDES WITH ADDED PROTECTION OF FWW AND A GAIT BELT. NO UNSTEADINESS ON FEET NOTED. PATIENT AWARE TO SIT AT SIDE OF BED FOR A PERIOD PRIOR TO STANDING. ABLE TO VOID 600ML OF CLEAR ADDIE URINE, AND SAMPLE SENT TO LAB PER ORDER. WILL CONTINUE MONITORING BLOOD PRESSURE AND ENCOURAGE PATIENT TO CALL FOR ASSIST FOR ANY NEEDS OR TO INFORM OF CHANGES
--- NOTE | 2022-05-18 15:47 | NUR ---
SHIFT SUMMARY PT AWAKE AT START OF SHIFT. A&O, PLEASANT AND CO-OP. ORTHROSTATIC VS DONE; SEE CHART AND PREVIOUS NOTE. PER REPORT, DR MENDOZA HERE TO SEE PT EARLY. PT REPORTED DIURETIC MEDICATION TO BE ADJUSTED. PT REPORTED MILD CP EARLIER THIS AM, RIGHT AFTER BREAKFAST. PT SOON REPORTED THAT IT RESOLVED. NO FURTHER C/O. PT UP TO EOB FOR MEALS. NAPS THRU OUT THE DAY. PT REPORTED THAT SHE TAKES PAIN MEDICATION FOR ABD SCARRING FROM HX OF SX'S. DENIES FURTHER NEEDS. CALL LT IN REACH.
--- NOTE | 2022-05-18 15:52 | NUR ---
ORTHOSTATIC VS THIS AM [id number] 54 SITTING 84/67HR 66 [id number] HR 82
--- NOTE | 2022-05-19 11:12 | NUR ---
ORTHOSTATIC VITALS NOTE 108/69 LAYING DOWN 112/79 SITTING UP 97/87 STANDING UP
--- NOTE | 2022-05-19 15:12 | NUR ---
ORTHOSTATIC VITALS 99/68 LAYING DOWN 108/84 SITTING UP 91/58 STANDING UP
--- NOTE | 2022-05-19 16:08 | NUR ---
SHIFT SUMMARY PATIENT IS ALERT AND ORIENTED. PATIENT IS A 1 PERSON ASSIST TO BATHROOM. PATIENT HAS BEEN PLEASENT AND COOPERATIVE WITH CARE THIS SHIFT. ORTHOSTATIC VITAL SIGNS WERE DONE TWICE THIS SHIFT, BOTH WERE POSITIVE. PATIENT REPORTS DIZZINESS AND UNSTEADINESS WHILE STANDING. PATIENT HAS NOT HAD ANY ACUTE EVENTS THIS SHIFT. VITAL SIGNS REVIEWED. PATIENT IN LOWEST AND LOCKED POSITION. CALL LIGHT IN REACH. WILL MONITOR UNTIL SHIFT CHANGE.
--- NOTE | 2022-05-20 05:02 | NUR ---
SHIFT SUMMARY PATIENT HAD NO ACUTE CHANGES. AXOX 4 AND ONE ASSIST WITH FFW/GB TO BR. PIV REMAINS INTACT. CBG 203. LEGAL CONTRACTS SPECIALIST SB 60. 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 VSS/AFEBRILE. SCHEDULE BUPRENORPHINE HCL 4 MG SL GIVEN FOR ABDOMINAL PAIN. ABLE TO SLEEP MOST OF SHIFT. DENIES SOB AND N/V. COOPERATIVE WITH CARE. CALL LIGHT IN REACH. BED IN LOWEST POSITION. WILL CONTINUE TO MONITOR UNTIL DAY SHIFT NURSE ASSUMES CARE.
[2022-05-20 05:03] LABS: BASOPHILS ABSOLUTE AUTO 0.03 K/mm3 (0.00-0.23); BASOPHILS PERCENT AUTO 1 % (0-2); EOSINOPHILS ABSOLUTE AUTO 0.06 K/mm3 (0.00-0.68); EOSINOPHILS PERCENT AUTO 2 % (0-6); Hematocrit 43.8 % (33.0-51.0); Hemoglobin 13.8 g/dL (11.5-16.0); IMMATURE GRAN ABSOLUTE AUTO 0.01 K/mm3 (0.00-0.10); IMMATURE GRAN PERCENT AUTO 0 % (0-1); LYMPHOCYTES ABSOLUTE AUTO 1.47 K/mm3 (0.84-5.20); LYMPHOCYTES PERCENT AUTO 37 % (21-46); MONOCYTES PERCENT AUTO 8 % (4-13); Mean Corpuscular HGB 28.9 pg (26.0-34.0); Mean Corpuscular HGB Conc 31.5 g/dL (31.5-36.5); Mean Corpuscular Volume 92 fL (80-100); Mean Platelet Volume 10.5 fL (9.1-12.4); NEUTROPHILS ABSOLUTE AUTO 2.11 K/mm3 (1.96-9.15); NEUTROPHILS PERCENT AUTO 53 % (41-73); Platelet Count 160 K/mm3 (150-400); RDW Coefficient Variation 13.1 % (11.7-14.2); RDW Standard Deviation 44.6 fL (35.1-46.3); Red Blood Cell Count 4.78 M/mm3 (3.80-5.20); White Blood Cell Count 3.98 K/mm3 (4.00-11.30)
[2022-05-20 05:30] LABS: Albumin, Blood 3.2 g/dL (3.4-5.0); Albumin/Globulin Ratio 0.9 (0.8-1.8); Bilirubin, Total 0.7 mg/dL (0.1-1.0); Bun/Creatinine Ratio 30.7 (12.0-20.0); Calcium, Blood 9.1 mg/dL (8.5-10.1); Creatinine, Blood 0.82 mg/dL (0.40-1.00); Globulin, Blood 3.6 g/dL (2.2-4.0); Potassium, Blood 3.9 mmol/L (3.5-5.5); Total Protein, Blood 6.8 g/dL (6.4-8.2)
--- NOTE | 2022-05-20 12:52 | NUR ---
Patient expresses that she is feeling like she is "hanging out in limbo" while attempts are made to regulate her heart rate. She states that she feels anxious at times about it. She tells me about financial and personal struggles. I provide therapeutic listening, gentle child welfare counselor and prayer. Pt responds well and shows signs of greater peace. I will continue to remain available.
--- NOTE | 2022-05-20 19:37 | NUR ---
SHIFT SUMMARY S/P CP, A/O X4, VSS, TOLERATING PO, AMBULATES c SBA/FWW, VOIDS WELL. PT DENIED CP T/O THIS SHIFT, REPORTS MINIMAL DIZZINESS WHEN STANDING UP THIS MORNING BUT REPORTS IT WAS MUCH BETTER BY THIS AFTERNOON. CALM AND COOPERATIVE WITH ALL NURSING CARE. NO ACUTE EVENTS THIS SHIFT, CALL LIGHT IN REACH, REPORT GIVEN TO ALEC RN.
--- NOTE | 2022-05-21 04:38 | NUR ---
PT SLEPT ALL NIGHT AND RECIEVED MEDICATIONS PER JAN. AT 0400, BP 95/73 WITH 53 HR. PT REPORTED FEELING DIZZY WHEN GETTING UP TO GO TO THE BATHROOM. PT SAT AT SIDE OF BED AND WAITED BEFORE MOVING. PT STATES SHE CONTINUED TO FEEL DIZZY AFTER GOING TO AND FROM THE BATHROOM.
[2022-05-21 05:39] LABS: BASOPHILS ABSOLUTE AUTO 0.02 K/mm3 (0.00-0.23); BASOPHILS PERCENT AUTO 1 % (0-2); EOSINOPHILS ABSOLUTE AUTO 0.08 K/mm3 (0.00-0.68); EOSINOPHILS PERCENT AUTO 2 % (0-6); Hemoglobin 12.8 g/dL (11.5-16.0); IMMATURE GRAN ABSOLUTE AUTO 0.01 K/mm3 (0.00-0.10); IMMATURE GRAN PERCENT AUTO 0 % (0-1); LYMPHOCYTES ABSOLUTE AUTO 1.43 K/mm3 (0.84-5.20); LYMPHOCYTES PERCENT AUTO 37 % (21-46); MONOCYTES ABSOLUTE AUTO 0.32 K/mm3 (0.16-1.47); MONOCYTES PERCENT AUTO 8 % (4-13); Mean Corpuscular Volume 91 fL (80-100); Mean Platelet Volume 11.1 fL (9.1-12.4); NEUTROPHILS ABSOLUTE AUTO 1.98 K/mm3 (1.96-9.15); NEUTROPHILS PERCENT AUTO 52 % (41-73); Platelet Count 158 K/mm3 (150-400); RDW Standard Deviation 42.7 fL (35.1-46.3); Red Blood Cell Count 4.42 M/mm3 (3.80-5.20); White Blood Cell Count 3.84 K/mm3 (4.00-11.30)
[2022-05-21 06:00] LABS: Albumin/Globulin Ratio 0.9 (0.8-1.8); Bilirubin, Total 0.8 mg/dL (0.1-1.0); Bun/Creatinine Ratio 26.7 (12.0-20.0); Calcium, Blood 8.9 mg/dL (8.5-10.1); Creatinine, Blood 0.83 mg/dL (0.40-1.00); Globulin, Blood 3.3 g/dL (2.2-4.0); Potassium, Blood 4.3 mmol/L (3.5-5.5); Total Protein, Blood 6.3 g/dL (6.4-8.2)
[2022-05-21 15:10] LABS: A/G RATIO 1.2 (0.7-1.7); ALBUMIN 3.5 g/dL (2.9-4.4); ALPHA-1-GLOBULIN 0.3 g/dL (0.0-0.4); ALPHA-2-GLOBULIN 0.8 g/dL (0.4-1.0); BETA GLOBULIN 1.1 g/dL (0.7-1.3); GAMMA GLOBULIN 0.9 g/dL (0.4-1.8); IMMUNOGLOBULIN A, QN, SERUM 455 mg/dL (87-352); IMMUNOGLOBULIN G, QN, SERUM 922 mg/dL (586-1602); IMMUNOGLOBULIN M, QN, SERUM 52 mg/dL (26-217); M-SPIKE Not Observed g/dL (Not Observed); PROTEIN, TOTAL, SERUM 6.5 g/dL (6.0-8.5)
--- NOTE | 2022-05-21 15:55 | NUR ---
Patient expresses her excitement about the possibilty of d/c tomorrow and also her fear that the cause of her heart issues has not been discovered. She mentions her concern that because the cause is not determined that it will be a reoccurring issue. We explore the sources of her worry and ways to help midigate the troubling thoughts. We discuss futher her jaylen and family. I provide gentle residential substance abuse counselor, anxiety containment and prayer. Pt responds well and shows signs of being more centered. I will continue to remain available.
--- NOTE | 2022-05-21 16:40 | NUR ---
DAY SHIFT SUMMARY 61 YR OLD FEMALE PT ADMITTED WITH CP. PT ON TELE WITH SB AT 60. PT ON RA AND ABLE TO TAKE MEDS WHOLE, PAIN MEDS SCHEDULED FOR PT. PT HYPOTENSIVE AT TIMES. DIZZINESS WITH EXERTION. PHYSICAL THERAPY WORKING WITH PT. CALL LIGHT WITHIN REACH AND ABLE TO CALL APPROPRIATE. 2 PERSON ASSIST D/T DIZZINESS.
--- NOTE | 2022-05-22 04:57 | NUR ---
NEPHEW CAME TO VISIT FOR A FEW HOURS, PT INDEPENDENT WITH ADL'S PT SLEPT A FEW HOURS BROKEN, STATES SHE DOES NOT SLEEP WELL AT HOME EITHER.
[2022-05-22 05:57] LABS: BASOPHILS ABSOLUTE AUTO 0.02 K/mm3 (0.00-0.23); BASOPHILS PERCENT AUTO 1 % (0-2); EOSINOPHILS ABSOLUTE AUTO 0.09 K/mm3 (0.00-0.68); EOSINOPHILS PERCENT AUTO 2 % (0-6); Hematocrit 38.3 % (33.0-51.0); Hemoglobin 12.3 g/dL (11.5-16.0); IMMATURE GRAN ABSOLUTE AUTO 0.01 K/mm3 (0.00-0.10); IMMATURE GRAN PERCENT AUTO 0 % (0-1); LYMPHOCYTES ABSOLUTE AUTO 1.43 K/mm3 (0.84-5.20); LYMPHOCYTES PERCENT AUTO 33 % (21-46); MONOCYTES ABSOLUTE AUTO 0.37 K/mm3 (0.16-1.47); MONOCYTES PERCENT AUTO 9 % (4-13); Mean Corpuscular HGB 28.9 pg (26.0-34.0); Mean Corpuscular HGB Conc 32.1 g/dL (31.5-36.5); Mean Corpuscular Volume 90 fL (80-100); NEUTROPHILS PERCENT AUTO 56 % (41-73); Platelet Count 152 K/mm3 (150-400); RDW Coefficient Variation 12.9 % (11.7-14.2); RDW Standard Deviation 42.4 fL (35.1-46.3); Red Blood Cell Count 4.25 M/mm3 (3.80-5.20); White Blood Cell Count 4.32 K/mm3 (4.00-11.30)
[2022-05-22 06:22] LABS: Bun/Creatinine Ratio 28.3 (12.0-20.0); Calcium, Blood 8.6 mg/dL (8.5-10.1); Creatinine, Blood 0.74 mg/dL (0.40-1.00); Potassium, Blood 4.1 mmol/L (3.5-5.5)
[2022-05-22] MEDS ORDERED: ASPI81CH PO (11:11)
[2022-05-22] MEDS ORDERED: MIDODRINE HCL10 M1 PO (11:12)
[2022-05-22] MEDS ORDERED: PANT20 PO (11:13)
--- NOTE | 2022-05-22 15:35 | NUR ---
DISCHARGE SUMMARY IV AND TELE REMOVED PRIOR TO DISCHARGE. DISCHARGE EDUCATION REVIEWED WITH AND SIGNED BY PT. MEDS FAXED TO PHARMACY. PT TAKEN VIA WHEELCHAIR ALONG WITH PERSONAL BELONGINGS TO EXIT WHERE SHE WAS MET BY HER TRANSPORTATION.
[2022-06-04] MEDS ORDERED: Acetaminophen325 M1 PO (11:17)
[2022-06-04] MEDS ORDERED: Novolog100 UNIT/2 (11:19)
[2022-06-04] MEDS ORDERED: TRULICITY1.5 MG/0.1 INJ (11:19)
== END 2022-05-22 14:15 | disposition home health service (06) | DRG 312 ==
LOC: ER 20:45 → PCU 20:46 → MEDS 20:46 → PCU 05-14 00:18 → MEDS 05-14 00:18 → ER 05-14 00:18 → PCU 05-14 01:35 → MEDS 05-15 16:03
PROVIDERS: Emergency Medicine; Family Medicine; Hospitalist; Internal Medicine; Internal Medicine Cardiovascular Disease; ADMIT Internal Medicine
DX: I95.1 Orthostatic hypotension (principal); I50.32 Chronic diastolic (congestive) heart failure; I25.10 Atherosclerotic heart disease of native coronary artery without angina pectoris; I48.0 Paroxysmal atrial fibrillation; E03.9 Hypothyroidism, unspecified; E11.9 Type 2 diabetes mellitus without complications; M54.9 Dorsalgia, unspecified; G89.29 Other chronic pain; F41.9 Anxiety disorder, unspecified; F32.A Depression, unspecified; G40.909 Epilepsy, unspecified, not intractable, without status epilepticus; G25.81 Restless legs syndrome; E78.5 Hyperlipidemia, unspecified; I35.0 Nonrheumatic aortic (valve) stenosis; I34.8 Other nonrheumatic mitral valve disorders; M81.0 Age-related osteoporosis without current pathological fracture; I11.0 Hypertensive heart disease with heart failure; Z79.01 Long term (current) use of anticoagulants; Z95.5 Presence of coronary angioplasty implant and graft; Z88.8 Allergy status to other drugs, medicaments and biological substances; Z98.84 Bariatric surgery status; H40.9 Unspecified glaucoma; H54.62 Unqualified visual loss, left eye, normal vision right eye; Z79.82 Long term (current) use of aspirin; Z88.1 Allergy status to other antibiotic agents; Z88.0 Allergy status to penicillin; Z91.013 Allergy to seafood; Z91.048 Other nonmedicinal substance allergy status; Z79.02 Long term (current) use of antithrombotics/antiplatelets; Z79.899 Other long term (current) drug therapy; Z79.4 Long term (current) use of insulin; I25.2 Old myocardial infarction; Z98.890 Other specified postprocedural states; Z90.49 Acquired absence of other specified parts of digestive tract; Z90.710 Acquired absence of both cervix and uterus; Z90.721 Acquired absence of ovaries, unilateral
CPT/HCPCS: 36415; 71045; 80048; 80053; 82533; 82784; 82947; 83521; 83735; 83880; 84100; 84155; 84165; 84443; 84484; 85025; 86334; 86335; 93005; 93010; 93308; 96374; 97112; 97161; 97166; 97530; 97535; 99285-25; A9270; G0378; J1650; J1815; J2405; J3475; J7030

== ENCOUNTER 2022-06-25 13:23 | Emergency (ER) | payer MEDICARE, OTHER ==
[~2022-06-25] VITALS: Ht 167.6 cm; Wt 93.9 kg
[~2022-06-25 13:23] MED LIST changes: +ASPI81CH PO; +Levemir Flextouch SC; +Lyrica25 MG PO; +MIDODRINE HCL10 M1 PO; +NALOXONE H0.4 MG/1 M IV; +Novolog100 UNIT/2; +PANT20 PO; +RANEXA1000 M4 PO; +TRULICITY1.5 MG/0.1 INJ; +XARELTO10 M1 PO
[2022-06-25 14:06] LABS: BASOPHILS ABSOLUTE AUTO 0.04 K/mm3 (0.00-0.23); BASOPHILS PERCENT AUTO 1 % (0-2); EOSINOPHILS ABSOLUTE AUTO 0.09 K/mm3 (0.00-0.68); EOSINOPHILS PERCENT AUTO 1 % (0-6); Hemoglobin 16.6 g/dL (11.5-16.0); IMMATURE GRAN ABSOLUTE AUTO 0.01 K/mm3 (0.00-0.10); IMMATURE GRAN PERCENT AUTO 0 % (0-1); LYMPHOCYTES ABSOLUTE AUTO 2.36 K/mm3 (0.84-5.20); LYMPHOCYTES PERCENT AUTO 32 % (21-46); MONOCYTES ABSOLUTE AUTO 0.41 K/mm3 (0.16-1.47); MONOCYTES PERCENT AUTO 6 % (4-13); Mean Corpuscular HGB 29.4 pg (26.0-34.0); Mean Corpuscular HGB Conc 31.9 g/dL (31.5-36.5); Mean Corpuscular Volume 92 fL (80-100); Mean Platelet Volume 10.2 fL (9.1-12.4); NEUTROPHILS ABSOLUTE AUTO 4.51 K/mm3 (1.96-9.15); NEUTROPHILS PERCENT AUTO 61 % (41-73); Platelet Count 267 K/mm3 (150-400); RDW Coefficient Variation 13.3 % (11.7-14.2); RDW Standard Deviation 45.4 fL (35.1-46.3); Red Blood Cell Count 5.64 M/mm3 (3.80-5.20); White Blood Cell Count 7.42 K/mm3 (4.00-11.30)
[2022-06-25 14:29] LABS: Albumin, Blood 3.4 g/dL (3.4-5.0); Albumin/Globulin Ratio 0.9 (0.8-1.8); Bilirubin, Total 0.6 mg/dL (0.1-1.0); Bun/Creatinine Ratio 15.4 (12.0-20.0); Calcium, Blood 9.2 mg/dL (8.5-10.1); Creatinine, Blood 0.84 mg/dL (0.40-1.00); Globulin, Blood 3.9 g/dL (2.2-4.0); Total Protein, Blood 7.3 g/dL (6.4-8.2)
== END 2022-06-25 16:15 | disposition home or self-care (01) ==
LOC: ER 13:23
PROVIDERS: Emergency Medicine
DX: R00.0 Tachycardia, unspecified (principal); E11.9 Type 2 diabetes mellitus without complications; I10 Essential (primary) hypertension; E03.9 Hypothyroidism, unspecified; I48.91 Unspecified atrial fibrillation; I25.2 Old myocardial infarction; Z79.899 Other long term (current) drug therapy; Z79.01 Long term (current) use of anticoagulants; Z79.4 Long term (current) use of insulin; Z88.1 Allergy status to other antibiotic agents; Z88.0 Allergy status to penicillin; Z91.013 Allergy to seafood; Z88.8 Allergy status to other drugs, medicaments and biological substances; Z91.09 Other allergy status, other than to drugs and biological substances; Z95.5 Presence of coronary angioplasty implant and graft
CPT/HCPCS: 36415; 71045; 80053; 84484; 85025; 93005; 93010; 99285-25; J7030

== ENCOUNTER 2022-07-20 08:00 | Emergency (ER) | payer MEDICARE, OTHER ==
[~2022-07-20] VITALS: Ht 167.6 cm; Wt 94.3 kg
[2022-07-20 11:44] LABS: BASOPHILS ABSOLUTE AUTO 0.01 K/mm3 (0.00-0.23); BASOPHILS PERCENT AUTO 0 % (0-2); EOSINOPHILS ABSOLUTE AUTO 0.01 K/mm3 (0.00-0.68); EOSINOPHILS PERCENT AUTO 0 % (0-6); Hematocrit 43.7 % (33.0-51.0); Hemoglobin 13.9 g/dL (11.5-16.0); IMMATURE GRAN ABSOLUTE AUTO 0.01 K/mm3 (0.00-0.10); IMMATURE GRAN PERCENT AUTO 0 % (0-1); LYMPHOCYTES PERCENT AUTO 9 % (21-46); MONOCYTES ABSOLUTE AUTO 0.14 K/mm3 (0.16-1.47); MONOCYTES PERCENT AUTO 2 % (4-13); Mean Corpuscular HGB Conc 31.8 g/dL (31.5-36.5); Mean Corpuscular Volume 91 fL (80-100); Mean Platelet Volume 9.7 fL (9.1-12.4); NEUTROPHILS ABSOLUTE AUTO 7.25 K/mm3 (1.96-9.15); NEUTROPHILS PERCENT AUTO 89 % (41-73); Platelet Count 200 K/mm3 (150-400); RDW Coefficient Variation 12.9 % (11.7-14.2); Red Blood Cell Count 4.79 M/mm3 (3.80-5.20); White Blood Cell Count 8.12 K/mm3 (4.00-11.30)
[2022-07-20 12:01] LABS: Albumin, Blood 3.2 g/dL (3.4-5.0); Albumin/Globulin Ratio 0.8 (0.8-1.8); Bilirubin, Total 0.8 mg/dL (0.1-1.0); Calcium, Blood 8.5 mg/dL (8.5-10.1); Creatinine, Blood 0.69 mg/dL (0.40-1.00); Globulin, Blood 3.8 g/dL (2.2-4.0); Potassium, Blood 4.8 mmol/L (3.5-5.5)
== END 2022-07-20 14:29 | disposition home or self-care (01) ==
LOC: ER 08:00
PROVIDERS: Physician Assistant
DX: M79.81 Nontraumatic hematoma of soft tissue (principal); I10 Essential (primary) hypertension; E11.9 Type 2 diabetes mellitus without complications; I48.91 Unspecified atrial fibrillation; E03.9 Hypothyroidism, unspecified; Z98.84 Bariatric surgery status; Z95.5 Presence of coronary angioplasty implant and graft; Z88.1 Allergy status to other antibiotic agents; Z88.0 Allergy status to penicillin; Z91.013 Allergy to seafood; Z88.8 Allergy status to other drugs, medicaments and biological substances; Z91.048 Other nonmedicinal substance allergy status; Z79.899 Other long term (current) drug therapy; Z79.4 Long term (current) use of insulin
CPT/HCPCS: 36415; 71260; 73030; 80053; 85025; A9270; Q9967

== ENCOUNTER 2022-08-17 14:17 | Emergency (ER) | payer MEDICARE, OTHER ==
[~2022-08-17] VITALS: Ht 167.6 cm; Wt 93.4 kg
[2022-08-17 15:38] LABS: BASOPHILS ABSOLUTE AUTO 0.03 K/mm3 (0.00-0.23); BASOPHILS PERCENT AUTO 1 % (0-2); EOSINOPHILS ABSOLUTE AUTO 0.03 K/mm3 (0.00-0.68); EOSINOPHILS PERCENT AUTO 1 % (0-6); Hemoglobin 14.9 g/dL (11.5-16.0); IMMATURE GRAN ABSOLUTE AUTO 0.01 K/mm3 (0.00-0.10); IMMATURE GRAN PERCENT AUTO 0 % (0-1); LYMPHOCYTES ABSOLUTE AUTO 1.23 K/mm3 (0.84-5.20); LYMPHOCYTES PERCENT AUTO 21 % (21-46); MONOCYTES ABSOLUTE AUTO 0.25 K/mm3 (0.16-1.47); MONOCYTES PERCENT AUTO 4 % (4-13); Mean Corpuscular HGB 29.3 pg (26.0-34.0); Mean Corpuscular Volume 95 fL (80-100); Mean Platelet Volume 10.5 fL (9.1-12.4); NEUTROPHILS ABSOLUTE AUTO 4.27 K/mm3 (1.96-9.15); NEUTROPHILS PERCENT AUTO 73 % (41-73); Platelet Count 225 K/mm3 (150-400); RDW Coefficient Variation 13.8 % (11.7-14.2); RDW Standard Deviation 48.4 fL (35.1-46.3); Red Blood Cell Count 5.08 M/mm3 (3.80-5.20); White Blood Cell Count 5.82 K/mm3 (4.00-11.30)
[2022-08-17] MEDS ORDERED: Amiodarone HCl200 MG PO (15:38)
[2022-08-17] MEDS ORDERED: BUPRENORPHIN-N1 EAC5 SL (15:41)
[2022-08-17] MEDS ORDERED: DICLOFENAC SOD100 G1 TOP (15:43)
[2022-08-17] MEDS ORDERED: Amaryl1 MG PO (15:44)
[2022-08-17] MEDS ORDERED: LATANOPROST2.5 M3 BOTHEYES (15:45)
[2022-08-17 15:51] LABS: Albumin, Blood 3.3 g/dL (3.4-5.0); Bilirubin, Total 0.4 mg/dL (0.1-1.0); Bun/Creatinine Ratio 13.7 (12.0-20.0); Creatinine, Blood 1.02 mg/dL (0.40-1.00); Globulin, Blood 3.2 g/dL (2.2-4.0); Potassium, Blood 3.5 mmol/L (3.5-5.5); Total Protein, Blood 6.5 g/dL (6.4-8.2)
== END 2022-08-17 20:06 | disposition home or self-care (01) ==
LOC: ER 14:17
PROVIDERS: Emergency Medicine
DX: I48.91 Unspecified atrial fibrillation (principal); E11.9 Type 2 diabetes mellitus without complications; G40.909 Epilepsy, unspecified, not intractable, without status epilepticus; I10 Essential (primary) hypertension; E03.9 Hypothyroidism, unspecified; I25.2 Old myocardial infarction; Z88.1 Allergy status to other antibiotic agents; Z91.048 Other nonmedicinal substance allergy status; Z91.041 Radiographic dye allergy status; Z88.0 Allergy status to penicillin; Z91.013 Allergy to seafood; Z79.899 Other long term (current) drug therapy; Z79.4 Long term (current) use of insulin
CPT/HCPCS: 36415; 71045; 80053; 84484; 85025; 93005; 93010; 99285-25; J7030

== ENCOUNTER 2023-08-19 10:21 | Day surgery (SDC) | payer MEDICARE, OTHER ==
[2023-08-19] VITALS (11 sets, daily range): BP systolic 116–155; BP diastolic 68–92
[~2023-08-19] VITALS: Ht 165.1 cm; Wt 84.4 kg
[~2023-08-19 10:21] MED LIST changes: +Amiodarone HCl200 MG PO; +BUPRENORPHIN-N1 EAC5 SL; +DICLOFENAC SOD100 G1 TOP; +LATANOPROST2.5 M3 BOTHEYES; +NALOXONE H0.4 MG/1 M INH; -NALOXONE H0.4 MG/1 M IV
--- NOTE | 2023-08-19 12:31 | NUR ---
TIME OUT FOR LEFT ROMEL CLAVICULAR BLOCK WITH DR CROWDER.
--- NOTE | 2023-08-19 12:52 | NUR ---
SUPRA CLAVICULAR BLOCK START 1239, END 1243. VSS.
--- NOTE | 2023-08-19 12:53 | NUR ---
PATIENT REMOVED EARINGS AND PLACED WITH HER CLOTHING IN PATIENT BELONGING BAG. DENTURES LEFT AT HOME PER PATIENT. GLASSES TO BE BROUGHT TO PACU FOR SAFE KEEPING DURING SURGERY.
--- NOTE | 2023-08-19 13:54 | NUR ---
08/19/23 1354 Maryan Garcia NERVE BLOCK COMPLETED BY DR. CROWDER IN PREOP AREA.
--- NOTE | 2023-08-19 16:51 | NUR ---
PT DENIES PAIN, PT ASSISTED WITH GETTING DRESSED AND SLING IN PLACE. ICE PACK WAS ON PT FOR 15 MIN AND WILL TAKE HOME TO USE. CAP REFILL LESS THAN 3 SECONDS, PT UNABLE TO WIGGLE FINGERS, PT DID HAVE NERVE BLOCK. Discharge instructions reviewed with patient. Patient verbalizes understanding. Copy given to patient to take home. Discharged via wheelchair to private car for ride home.
== END 2023-08-19 16:52 | disposition home or self-care (01) ==
LOC: ORSCMMR 10:21 → ORD 12:30 → ORSCMMR 16:52
PROVIDERS: Orthopaedic Surgery
PROC: 0PSJ04Z Reposition Left Radius with Internal Fixation Device, Open Approach (ICD-10-PCS; principal; 2023-08-19 11:00)
DX: S52.92XP Unspecified fracture of left forearm, subsequent encounter for closed fracture with malunion (principal); I10 Essential (primary) hypertension; E03.9 Hypothyroidism, unspecified; Z79.899 Other long term (current) drug therapy
CPT/HCPCS: 82947; A9270; C1713; J0696; J1100; J1885; J2001; J2250; J2405; J2704; J3010; J7030

== ENCOUNTER 2024-09-14 06:53 | Day surgery (SDC) | payer MEDICARE, OTHER ==
[~2024-09-14] VITALS: Ht 167.6 cm; Wt 78.4 kg
[~2024-09-14 06:53] MED LIST changes: +ACET500 PO; +BETIMOL5 M1; +BUPR75 PO; +BUPRENORPHINE HC2 MG SL; +Calcium Carbon500 MG PO; +DAPAGLIFLOZIN10 MG PO; +EUTHYROX137 MC1 PO; +GABA300 PO; +K-Dur10 MEQ; +Lidocaine HCl/Pf 1% 5 ML VIAL ONE; +MIDO5 PO; +OMEP20ER PO; +Povidone-Iodine 450 DROP/30 ML Solution ONE; +REMERON30 M9 PO; +Robaxin750 MG PO; +Tetracaine HCl/Pf 0.5% Opth Soln 4 ml ONE
--- NOTE | 2024-09-14 07:51 | NUR ---
09/14/24 0751 Kelly Whitley AT 0788 PLEDGET 0750
[2024-09-14] MEDS ORDERED: Lidocaine HCl/Pf 1% 5 ML VIAL XX SCH (08:10)
[2024-09-14] MEDS ORDERED: Balanced Salt Epinephrine Irrigation Solution 500 mL IR SCH (08:10)
[2024-09-14] MEDS ORDERED: Moxifloxacin HCL 0.5 MG/0.1 ML 0.4MLSYR RIGHTEYE SCH (08:10)
[2024-09-14] MEDS ORDERED: Povidone-Iodine 450 DROP/30 ML Solution RIGHTEYE SCH (08:15)
[2024-09-14] MEDS ORDERED: PHENYLEPHRINE\\TROPICAMIDE\\TETRACAINE OPHTHALMIC DILATING SOLN RIGHTEYE PRN (08:15)
--- NOTE | 2024-09-14 08:30 | NUR ---
09/14/24 1110 Shayy Ackerman CHEM BG OF 468. PER DR MONTEJO & DR BALDWIN OK TO PROCEED WITH LOCAL ONLY. PT VERBALIZES OK TO PROCEED WITH LOCAL ANESTHESIA ONLY.
[2024-09-14] MEDS ORDERED: Insulin Regular 100 UNIT/ML 10ML Vial ONE (08:39)
[2024-09-14 09:03] VITALS: BP 134/80
--- NOTE | 2024-09-14 09:08 | NUR ---
09/14/24 0908 Mitzy Elizabeth PER ORDERS FROM INSULIN REGULAR, IV, X ONE 5 UNITS WAS GIVEN AT 0852 IN 10ML OF NS AT 0852. DOSE VERIFIED BY 2 OTHER RN'S, RN EDDIE, AND RN JESSICA. FOR A BLOOD SUGAR OF 468 AT 0747.
== END 2024-09-14 09:32 | disposition home or self-care (01) ==
LOC: ORSCSDS 06:53
PROVIDERS: Student in an Organized Health Care Education/Training Program
PROC: 08RJ3JZ Replacement of Right Lens with Synthetic Substitute, Percutaneous Approach (ICD-10-PCS; principal; 2024-09-14 08:30)
DX: E11.36 Type 2 diabetes mellitus with diabetic cataract (principal); H25.811 Combined forms of age-related cataract, right eye; H35.89 Other specified retinal disorders; H54.40 Blindness, one eye, unspecified eye; E11.22 Type 2 diabetes mellitus with diabetic chronic kidney disease; F32.A Depression, unspecified; I12.9 Hypertensive chronic kidney disease with stage 1 through stage 4 chronic kidney disease, or unspecified chronic kidney disease; N18.9 Chronic kidney disease, unspecified; E03.9 Hypothyroidism, unspecified; I25.2 Old myocardial infarction; Z79.85 Long-term (current) use of injectable non-insulin antidiabetic drugs; Z79.899 Other long term (current) drug therapy
CPT/HCPCS: 82947; J1815; J2003; V2632

== ENCOUNTER 2025-09-19 00:39 | Day surgery (SDC) | payer MEDICARE, OTHER ==
[~2025-09-19 00:39] MED LIST changes: -Lidocaine HCl/Pf 1% 5 ML VIAL ONE; -Povidone-Iodine 450 DROP/30 ML Solution ONE; -Tetracaine HCl/Pf 0.5% Opth Soln 4 ml ONE
[2025-09-19] MEDS ORDERED: ZOLEDRONIC (10:16)
[2025-09-19] MEDS ORDERED: NOVOLOG100 UNIT/2 INJ (10:19)
[2025-09-19 10:20] VITALS: BP 136/95
== END 2025-09-19 10:28 | disposition home or self-care (01) ==
LOC: ATC 00:39
DX: M81.0 Age-related osteoporosis without current pathological fracture (principal); E11.9 Type 2 diabetes mellitus without complications; E06.3 Autoimmune thyroiditis; I25.10 Atherosclerotic heart disease of native coronary artery without angina pectoris; I25.2 Old myocardial infarction; I11.0 Hypertensive heart disease with heart failure; I50.9 Heart failure, unspecified; G40.909 Epilepsy, unspecified, not intractable, without status epilepticus; E78.2 Mixed hyperlipidemia; E66.89 Other obesity not elsewhere classified; Z68.34 Body mass index [BMI] 34.0-34.9, adult; Z79.890 Hormone replacement therapy; Z79.83 Long term (current) use of bisphosphonates; Z79.4 Long term (current) use of insulin; Z79.899 Other long term (current) drug therapy; Z88.1 Allergy status to other antibiotic agents; Z88.0 Allergy status to penicillin; Z88.8 Allergy status to other drugs, medicaments and biological substances; Z91.013 Allergy to seafood; Z91.048 Other nonmedicinal substance allergy status; Z91.09 Other allergy status, other than to drugs and biological substances; Z90.710 Acquired absence of both cervix and uterus; Z90.49 Acquired absence of other specified parts of digestive tract
CPT/HCPCS: 96365; J3489

== ENCOUNTER → 2025-10-18 | Outpatient (CLI) | payer MEDICARE, OTHER ==
[~2025-10-18] MED LIST changes: +NOVOLOG100 UNIT/2 INJ; +ZOLEDRONIC
[2025-10-18 21:08] LABS: Campylobacter Sp Not Detected (NOT DETECT); E. Coli O157 Not Detected (NOT DETECT); Enteroaggregative E. coli-EAEC Not Detected (NOT DETECT); Enteropathogenic E. coli-EPEC Not Detected (NOT DETECT); Enterotoxigenic E. coli-ETEC Not Detected (NOT DETECT); Salmonella Sp Not Detected (NOT DETECT); Shiga Toxin-prod E. coli-STEC Not Detected (NOT DETECT); Shigella/Enteroin E. coli-EIEC Not Detected (NOT DETECT); Vibrio Sp Not Detected (NOT DETECT)
== END ==
LOC: LAB SHORT 11:50 → LAB 11:50
PROVIDERS: Physician Assistant
DX: R19.7 Diarrhea, unspecified (principal)
CPT/HCPCS: 87507